=== PATIENT | male | born 1965 | race Caucasian/White ===

== ENCOUNTER 2020-12-04 19:03 | Emergency (ER) | payer MEDICARE, MEDICAID, SELFPAY ==
[2020-12-04 19:19] VITALS: BP 129/59; PULSE 73; RESP 16; TEMP 37.4; O2SAT 100; BMI 30.1
--- NOTE | 2020-12-04 19:38 | ED.PSYCH ---
HPI - Psych General Chief Complaint: Psychiatric Symptoms Stated Complaint: chest pain Source: patient Mode of arrival: ambulatory Limitations: no limitations History of Present Illness HPI Narrative: 55-year-old male presents via EMS for chest pain, suicidal ideation with plan to slit his throat with a razor. States that his fiancee dumped him, and is with another man. He did present to [facility] with similar circumstances approximately a week ago. MD complaint: suicidal ideation and feels depressed Onset (ago): week(s) Duration: constant History of same: Yes Relieving factors: none Context: significant life stressor Associated psychiatric symptoms: depression and suicidal ideation Associated symptoms: denies other symptoms Treatments prior to arrival: placed on mental health hold If self harm: admits thoughts of self harm Related Data Allergies Allergy/AdvReac Type Severity Reaction Status Date / Time bee pollen [bee stings] Allergy Intermediate Rash Verified 12/04/20 19:52 gluten AdvReac Intermediate Diarrhea Verified 12/04/20 19:51 Review of Systems Review of Systems: Constitutional: No Fever, No Chills ENT/Mouth: No Ear Pain, No Nasal Congestion, No sore throat Eyes: No Eye Pain, No Swelling, No Redness Cardiovascular: No Chest Pain, No SOB Respiratory: No Cough, No Sputum, No Dyspnea Gastrointestinal: No Nausea, No Vomiting, No Diarrhea, No Hematochezia, No Melena Genitourinary: No Dysuria, No Urinary Frequency, No Hematuria Musculoskeletal: No Myalgias Skin: No Skin Lesions, No rash Neuro: No Weakness, No Numbness, No Paresthesias, No Dizziness, No Headache Psych: positive Anxiety, positive Depression, positive SI Heme/Lymph: No Lymphadenopathy Endocrine: No Polyuria, No Polydipsia Yes all other systems are reviewed and are negative [facility] Past Medical History Attestation statement: The following information was validated with the patient. Source: old records reviewed Medical History Hypertension Social History Social History Advance Directives: No Physical Exam Vital Signs: Vital Signs: Last Vital Signs Temp 97.8 F 12/05/20 01:49 Pulse 67 12/05/20 01:49 Resp 17 12/05/20 01:49 BP 127/71 12/05/20 01:49 Pulse Ox 99 12/05/20 01:49 Body Mass Index 30.1 Appearance: Alert. Oriented X3. No acute distress. Eyes: Pupils equal, round and reactive to light. ENT: Pharynx normal. Neck: Normal inspection. Neck supple. CVS: Normal heart rate and rhythm. Pulses normal. Respiratory: No respiratory distress. Breath sounds normal. Abdomen: Soft and nontender. Skin: Skin warm and dry. Normal skin color. Normal skin turgor. Extremities: No lower extremity edema. Gait well balanced well coordinated. Neuro: No motor deficit. No sensory deficit. Cranial nerves 2-12 intact. Course Course Course Narrative: 55-year-old male presents with suicidal ideation with plan to slit his throat. Has significant life stressor, his fiancee left him and is now dating a man. Patient was seen at [facility] for similar circumstances. Will order EKG and labs. EKG normal sinus. Labs are unremarkable. Highly unlikely that this is ACS. screen is negative. Crisis consult pending. Section 12 signed. Physician observation at this time. [facility] records reviewed from 12/02/2020 H&H is 9.4/29.3 which is consistent with the values here today of 9.6/29.3. Does have a history of chronic alcoholism. EKG completed at [facility] at 7:28 p.m. with ventricular rate of 70 beats per minute, UT 158, QRS 134, QT 446, QTC 481, normal sinus rhythm with right bundle branch block. When compared to EKG completed on 12/01/2020 at [facility], no changes noted, and also reports no changes from prior EKGs on [facility] records. Crisis consult pending for the morning. MDM - Psych Differential Diagnosis Differential diagnosis: Likely suicidal ideation and depression Medical Records Attestation: I reviewed the patient's medical records. Lab Data Attestation: I reviewed the patient's lab results. Result diagrams: 12/04/20 20:05 12/04/20 20:05 Labs: Lab Results 12/04/20 12/04/20 12/04/20 Range/Units 20:00 20:05 20:05 WBC 4.4 L (4.8-10.8) X10*3/uL RBC 3.31 L (4.60-5.80) X10*6/uL Hgb 9.6 L (14.0-18.0) g/dl Hct 29.3 L (42-52) % MCV 88.5 (80-98) fL MCH 29.0 (27.0-33.0) pg MCHC 32.8 (31.0-36.0) g/dl RDW 15.3 (11.0-16.0) % Plt Count 183 (160-400) X10*3/uL MPV 9.3 L (9.4-12.4) fL Immature Gran % (Auto) 0.5 H (0.0-0.4) % Neut % (Auto) 56.3 (45-73) % Lymph % (Auto) 31.5 (20-40) % [place] % (Auto) 10.1 (2-11) % Eos % (Auto) 1.1 (0-4) % Baso % (Auto) 0.5 (0-2) % Lymph # (Auto) 1.4 (1.2-4.9) X10*3/uL [place] # (Auto) 0.4 (0.1-1.2) X10*3/uL Eos # (Auto) 0.1 (0.0-0.4) X10*3/uL Baso # (Auto) 0.0 (0.0-0.2) X10*3/uL Abs Immat Gran (auto) 0.02 (0.00-0.03) X10*3/uL Absolute Neuts (auto) 2.5 (2.0-8.3) X10*3/uL Absolute Nucleated RBC 0.000 (0.0-0.012) X10*3/uL Nucleated RBC % (auto) 0.0 (0.0-0.2) /100WBC Sodium 142 (135-145) mmol/L Potassium 4.0 (3.3-5.1) mmol/L Chloride 112 H (96-108) mmol/L Carbon Dioxide 25 (22-29) mmol/L Anion Gap 9 L (12-20) BUN 20 H (9-16) mg/dL Creatinine 0.79 (0.5-1.4) mg/dL Estim Creat Clear Calc 123.8 Estimated GFR > 60 Random Glucose 99 (60-115) mg/dL Calcium 8.4 (8.4-10.2) mg/dL Total Bilirubin 0.5 (0.0-1.0) mg/dL AST 31 (5-37) U/L ALT 30 (0-40) U/L Alkaline Phosphatase 74 (39-117) U/L Troponin I High Sens (<3.5-35.0) ng/L Total Protein 6.1 L (6.5-8.0) g/dL Albumin 3.5 (3.5-5.0) g/dL Urine Opiates Screen (Not Detect) Urine Fentanyl Screen (Not Detect) Ur Barbiturates Screen (Not Detect) Ur Phencyclidine Scrn (Not Detect) Ur Amphetamines Screen (Not Detect) U Benzodiazepines Scrn (Not Detect) Urine Cocaine Screen (Not Detect) U Marijuana (THC) Screen (Not Detect) Ethyl Alcohol mg/dL COVID-19 (EITAN) Negative (Negative) COVID-19 Clin Com See Note 12/04/20 12/04/20 12/05/20 Range/Units 20:05 20:05 01:58 WBC (4.8-10.8) X10*3/uL RBC (4.60-5.80) X10*6/uL Hgb (14.0-18.0) g/dl Hct (42-52) % MCV (80-98) fL MCH (27.0-33.0) pg MCHC (31.0-36.0) g/dl RDW (11.0-16.0) % Plt Count (160-400) X10*3/uL MPV (9.4-12.4) fL Immature Gran % (Auto) (0.0-0.4) % Neut % (Auto) (45-73) % Lymph % (Auto) (20-40) % [place] % (Auto) (2-11) % Eos % (Auto) (0-4) % Baso % (Auto) (0-2) % Lymph # (Auto) (1.2-4.9) X10*3/uL [place] # (Auto) (0.1-1.2) X10*3/uL Eos # (Auto) (0.0-0.4) X10*3/uL Baso # (Auto) (0.0-0.2) X10*3/uL Abs Immat Gran (auto) (0.00-0.03) X10*3/uL Absolute Neuts (auto) (2.0-8.3) X10*3/uL Absolute Nucleated RBC (0.0-0.012) X10*3/uL Nucleated RBC % (auto) (0.0-0.2) /100WBC Sodium (135-145) mmol/L Potassium (3.3-5.1) mmol/L Chloride (96-108) mmol/L Carbon Dioxide (22-29) mmol/L Anion Gap (12-20) BUN (9-16) mg/dL Creatinine (0.5-1.4) mg/dL Estim Creat Clear Calc Estimated GFR Random Glucose (60-115) mg/dL Calcium (8.4-10.2) mg/dL Total Bilirubin (0.0-1.0) mg/dL AST (5-37) U/L ALT (0-40) U/L Alkaline Phosphatase (39-117) U/L Troponin I High Sens 6.3 (<3.5-35.0) ng/L Total Protein (6.5-8.0) g/dL Albumin (3.5-5.0) g/dL Urine Opiates Screen Not Detected (Not Detect) Urine Fentanyl Screen Not Detected (Not Detect) Ur Barbiturates Screen Not Detected (Not Detect) Ur Phencyclidine Scrn Not Detected (Not Detect) Ur Amphetamines Screen Not Detected (Not Detect) U Benzodiazepines Scrn Not Detected (Not Detect) Urine Cocaine Screen Not Detected (Not Detect) U Marijuana (THC) Screen Not Detected (Not Detect) Ethyl Alcohol < 10 mg/dL COVID-19 (EITAN) (Negative) COVID-19 Clin Com ECG Data Attestation: I personally reviewed and interpreted this ECG as follows: ECG interpretation date: 12/04/20 Discharge Plan Discharge Clinical Impression: Depression, Suicidal ideation
--- NOTE | 2020-12-04 19:39 | ECG_ITS ---
Test Reason : CHEST PAIN Blood Pressure : / mmHG Vent. Rate : 070 BPM Atrial Rate : 070 BPM P-R Int : 158 ms QRS Dur : 134 ms QT Int : 446 ms P-R-T Axes : 006 089 055 degrees QTc Int : 481 ms Normal sinus rhythm Right bundle branch block Abnormal ECG No previous ECGs available Referred By: Allie Brink Electronically Signed By:ELIA ACUÑA
[2020-12-04 20:16] LABS: MANUAL DIFF FLAG NO
[2020-12-04 20:22] LABS: Basophils Percent Auto 0.5 % (0-2); Eosinophils Absolute Auto 0.1 X10*3/uL (0.0-0.4); Eosinophils Percent Auto 1.1 % (0-4); Hematocrit 29.3 % (42-52); Hemoglobin 9.6 g/dl (14.0-18.0); Imm Gran Abs Auto 0.02 X10*3/uL (0.00-0.03); Imm Gran Pct Auto 0.5 % (0.0-0.4); Lymphocytes Absolute Auto 1.4 X10*3/uL (1.2-4.9); Lymphocytes Percent Auto 31.5 % (20-40); Mean Corpuscular HGB Conc 32.8 g/dl (31.0-36.0); Mean Corpuscular Volume 88.5 fL (80-98); Mean Platelet Volume 9.3 fL (9.4-12.4); Monocytes Absolute Auto 0.4 X10*3/uL (0.1-1.2); Monocytes Percent Auto 10.1 % (2-11); Neutrophils Absolute Auto 2.5 X10*3/uL (2.0-8.3); Neutrophils Percent Auto 56.3 % (45-73); Platelet Count 183 X10*3/uL (160-400); Red Blood Count 3.31 X10*6/uL (4.60-5.80); Red Cell Distribution Width 15.3 % (11.0-16.0); White Blood Count 4.4 X10*3/uL (4.8-10.8)
[2020-12-04 20:22] LABS: COVID-19 Test Negative (Negative); IDNOW Serial# 9DD0AD1C
[2020-12-04 20:29] LABS: Ethanol < 10 mg/dL
[2020-12-04 20:33] LABS: Alanine Aminotransferase 30 U/L (0-40); Albumin Level 3.5 g/dL (3.5-5.0); Alkaline Phosphatase 74 U/L (39-117); Anion Gap 9 (12-20); Aspartate Amino Transferase 31 U/L (5-37); Bilirubin Total 0.5 mg/dL (0.0-1.0); Blood Urea Nitrogen 20 mg/dL (9-16); Calcium 8.4 mg/dL (8.4-10.2); Carbon Dioxide 25 mmol/L (22-29); Chloride 112 mmol/L (96-108); Creatinine Clr Calc Pharmacy 123.8; Estimated Glomerular Filt Rate > 60; Glucose Random 99 mg/dL (60-115); Sodium 142 mmol/L (135-145); Total Protein 6.1 g/dL (6.5-8.0)
[2020-12-04 20:36] LABS: Troponin-I High Sensitivity 6.3 ng/L (<3.5-35.0)
--- NOTE | 2020-12-05 00:29 | PC.NURSE ---
Patient in his bed appears sleeping, no distress observed/reported, N referral completed/confirmed by Doug, no clinician available, patient will be seen in the morning, will continue to monitor.
[2020-12-05 01:49] VITALS: BP 127/71; PULSE 67; RESP 17; TEMP 36.6; O2SAT 99
[2020-12-05 02:22] LABS: Amphetamine Screen Urine Not Detected (Not Detect); Barbiturates, Urine Not Detected (Not Detect); Benzodiazepines Screen Urine Not Detected (Not Detect); Cannabinoid Screen Urine Not Detected (Not Detect); Cocaine Screen Urine Not Detected (Not Detect); Fentanyl, urine Not Detected (Not Detect); Opiate Screen Urine Not Detected (Not Detect); Phencyclidine Screen Urine Not Detected (Not Detect)
--- NOTE | 2020-12-05 07:41 | PC.NURSE ---
patient remained asleep at beginning of shift now is awake calm and cooperastive appears in no distress
[2020-12-05 09:23] VITALS: BP 122/65; PULSE 64; RESP 16; TEMP 36.4; O2SAT 99
== END 2020-12-05 12:14 | disposition home or self-care (01) ==
PROVIDERS: Nurse Practitioner Family; Emergency Provider Student in an Organized Health Care Education/Training Program
DX: F33.1 Major depressive disorder, recurrent, moderate (principal); R45.851 Suicidal ideations; R07.9 Chest pain, unspecified; F43.9 Reaction to severe stress, unspecified; Z20.822 Contact with and (suspected) exposure to COVID-19; Z79.899 Other long term (current) drug therapy
CPT/HCPCS: 36415; 80053; 80307; 82077; 84484; 85025; 87635; 93005; 99284

== ENCOUNTER 2021-01-01 21:03 | Inpatient (IN) | payer MEDICARE, MEDICAID, SELFPAY ==
--- NOTE | ~2021-01-01 | XR_ITS ---
EXAMINATION: XR TOES, LEFT CLINICAL INFORMATION: Fall. 3rd toe bruising. Pain. Difficulty with ambulation. COMPARISON: None TECHNIQUE: 3 views of the left toes were obtained. FINDINGS: Minimally displaced, oblique fracture at the dorsal base of the 3rd distal phalanx. This contacts the distal interphalangeal articular surface. Mild soft tissue swelling. No joint space narrowing or marginal osteophytes. No osseous erosion. XR/XR toe LT min 2V IMPRESSION: Minimally displaced fracture along the dorsal base of the 3rd distal phalanx.
--- NOTE | ~2021-01-01 | XR_ITS ---
EXAMINATION: XR CHEST CLINICAL INFORMATION: Chest pain. COMPARISON: None TECHNIQUE: Frontal portable view of the chest was obtained. 2200 hours FINDINGS: Status post median sternotomy. Heart size is normal. The left pulmonary artery is markedly enlarged. Moderate enlargement right pulmonary artery. Findings suggest pulmonary arterial hypertension. Normal aeration of lungs. No pleural effusion or pneumothorax. Orthopedic left humeral head replacement. XR/XR chest 1V IMPRESSION: 1. No acute abnormality. 2.Status post median sternotomy. 3. Enlargement of pulmonary arteries suggestive of pulmonary arterial hypertension.
--- NOTE | 2021-01-01 21:13 | ECG_ITS ---
Test Reason : CHEST PAIN Blood Pressure : / mmHG Vent. Rate : 078 BPM Atrial Rate : 078 BPM P-R Int : 152 ms QRS Dur : 132 ms QT Int : 426 ms P-R-T Axes : 007 107 056 degrees QTc Int : 485 ms Normal sinus rhythm Right bundle branch block Abnormal ECG When compared with ECG of 04-DEC-2020 19:28, No significant change was found Referred By: Marcela Godoy Electronically Signed By:YANNI ESTRELLA MD
--- NOTE | 2021-01-01 21:14 | ED_ITS ---
HPI - Psych General Chief Complaint: Psychiatric Symptoms Stated Complaint: SI/Chest pain Time Seen by Provider: 01/01/21 21:09 Source: patient, EMS and old records reviewed Mode of arrival: EMS Limitations: no limitations History of Present Illness MD complaint: suicidal ideation, feels depressed and anxiety Onset (ago): day(s) (2) Duration: constant History of same: Yes Relieving factors: none Exacerbating factors: other (homelessness and his fiancee left him) Context: significant life stressor Associated psychiatric symptoms: depression and suicidal ideation Associated symptoms: other (reports chest pain no associated symptoms for 45 minutes) If self harm: admits thoughts of self harm Related Data Home Medications Medication Instructions Recorded Confirmed acetaminophen 325 mg tablet 2 mg PO TID PRN 01/01/21 01/01/21 citalopram 10 mg tablet 1 tab PO DAILY 01/01/21 01/01/21 hydroxyzine pamoate 50 mg capsule 1 cap PO TID PRN 01/01/21 01/01/21 prazosin 2 mg capsule 1 cap PO BEDTIME 01/01/21 01/01/21 sertraline 100 mg tablet 1 tab PO DAILY 01/01/21 01/01/21 Allergies Allergy/AdvReac Type Severity Reaction Status Date / Time bee pollen [bee stings] Allergy Intermediate Rash Verified 12/04/20 19:52 gluten AdvReac Intermediate Diarrhea Verified 12/04/20 19:51 Review of Systems Review of Systems: Constitutional : No Weight loss, No Fever, No Chills ENT/Mouth : No sore throat, No Rhinorrhea Eyes: No Eye Pain, No Swelling Cardiovascular : pos Chest Pain, no SOB, no Dyspnea on Exertion, No Orthopnea, No Edema, No Palpitations Respiratory : No Cough, No Sputum Gastrointestinal : no Nausea, No Vomiting, No Diarrhea, No abdominal Pain, No Hematochezia, No Melena Genitourinary : No Dysuria, No Urinary Frequency Musculoskeletal : No joint pain, No Myalgias, No Joint Swelling Skin : No Skin Lesions, No rash Neuro : No Weakness, No Numbness, No Dizziness, No Headache Psych : No Anxiety/Panic, pos Depression, pos SI Heme/Lymph: No Bruising, No Lymphadenopathy Endocrine : No Polyuria, No Polydipsia All other systems reviewed and are negative PMFSH Past Medical History Attestation statement: The following information was validated with the patient. Medical History Hypertension Social History Social History (Updated 01/01/21 @ 21:24 by Marcela Godoy DO) Patient Tobacco Use Status: Never used Tobacco Use of substances other than those prescribed or required for medical reasons: No Advance Directives: No Advance Directives Information Provided: No Physical Exam Vital Signs: Vital Signs: Last Vital Signs Temp 98.6 F 01/01/21 21:31 Pulse 82 01/01/21 21:31 Resp 14 01/01/21 21:31 BP 124/82 01/01/21 21:31 Pulse Ox 98 01/01/21 21:31 Body Mass Index 29.8 Appearance: Alert. Oriented X3. No acute distress. Eyes: Pupils equal, round and reactive to light. ENT: Pharynx normal. Neck: Normal inspection. Neck supple. CVS: Normal heart rate and rhythm. Pulses normal. Respiratory: No respiratory distress. Breath sounds normal. Abdomen: Soft and non-tender. Skin: Skin warm and dry. Normal skin color. Normal skin turgor. Extremities: No lower extremity edema. No calf ttp Neuro: Oriented X 3. No motor deficit. No sensory deficit. CN2-12 intact Psych: calm and cooperative, reports SI Course Course Course Narrative: delta trop is flat - will medically clear for BHN Physician observation started at 1238am. Patient placed in physician observation because the patient needed more time for BHN to evaluate the need for inpatient psychiatric care. At the time observation was started the patient's vitals were stable, patient is alert and oriented / calm, Neuro: nonfocal, CV RRR, Lungs clear MDM - Psych MDM Narrative Medical decision making narrative: 55 yo male with HTN, DM homeless here with SI due to losing his girlfriend but also then states chest tightness for 45 minutes - he presented almost the exact same way in November will obtain labs, EKG, troponin x 2, BHN consult once medically cleared. It seems his issues stem from lack of housing Lab Data Result diagrams: 01/01/21 21:53 01/01/21 21:53 Labs: Lab Results 01/01/21 01/01/21 01/01/21 Range/Units 21:53 21:53 21:53 WBC 4.5 L (4.8-10.8) X10*3/uL RBC 3.57 L (4.60-5.80) X10*6/uL Hgb 10.1 L (14.0-18.0) g/dl Hct 30.9 L (42-52) % MCV 86.6 (80-98) fL MCH 28.3 (27.0-33.0) pg MCHC 32.7 (31.0-36.0) g/dl RDW 14.1 (11.0-16.0) % Plt Count 189 (160-400) X10*3/uL MPV 9.1 L (9.4-12.4) fL Immature Gran % (Auto) 0.4 (0.0-0.4) % Neut % (Auto) 55.9 (45-73) % Lymph % (Auto) 30.4 (20-40) % [place] % (Auto) 11.5 H (2-11) % Eos % (Auto) 1.1 (0-4) % Baso % (Auto) 0.7 (0-2) % Lymph # (Auto) 1.4 (1.2-4.9) X10*3/uL [place] # (Auto) 0.5 (0.1-1.2) X10*3/uL Eos # (Auto) 0.1 (0.0-0.4) X10*3/uL Baso # (Auto) 0.0 (0.0-0.2) X10*3/uL Abs Immat Gran (auto) 0.02 (0.00-0.03) X10*3/uL Absolute Neuts (auto) 2.5 (2.0-8.3) X10*3/uL Absolute Nucleated RBC 0.000 (0.0-0.012) X10*3/uL Nucleated RBC % (auto) 0.0 (0.0-0.2) /100WBC Sodium 140 (135-145) mmol/L Potassium 3.8 (3.3-5.1) mmol/L Chloride 109 H (96-108) mmol/L Carbon Dioxide 22 (22-29) mmol/L Anion Gap 13 (12-20) BUN 21 H (9-16) mg/dL Creatinine 0.88 (0.5-1.4) mg/dL Estim Creat Clear Calc 110.6 Estimated GFR > 60 Random Glucose 104 (60-115) mg/dL Calcium 8.3 L (8.4-10.2) mg/dL Magnesium 2.0 (1.6-2.6) mg/dL Troponin I High Sens 7.2 (<3.5-35.0) ng/L COVID-19 (EITAN) (Negative) COVID-19 Clin Com 01/01/21 01/02/21 Range/Units 21:53 00:08 WBC (4.8-10.8) X10*3/uL RBC (4.60-5.80) X10*6/uL Hgb (14.0-18.0) g/dl Hct (42-52) % MCV (80-98) fL MCH (27.0-33.0) pg MCHC (31.0-36.0) g/dl RDW (11.0-16.0) % Plt Count (160-400) X10*3/uL MPV (9.4-12.4) fL Immature Gran % (Auto) (0.0-0.4) % Neut % (Auto) (45-73) % Lymph % (Auto) (20-40) % [place] % (Auto) (2-11) % Eos % (Auto) (0-4) % Baso % (Auto) (0-2) % Lymph # (Auto) (1.2-4.9) X10*3/uL [place] # (Auto) (0.1-1.2) X10*3/uL Eos # (Auto) (0.0-0.4) X10*3/uL Baso # (Auto) (0.0-0.2) X10*3/uL Abs Immat Gran (auto) (0.00-0.03) X10*3/uL Absolute Neuts (auto) (2.0-8.3) X10*3/uL Absolute Nucleated RBC (0.0-0.012) X10*3/uL Nucleated RBC % (auto) (0.0-0.2) /100WBC Sodium (135-145) mmol/L Potassium (3.3-5.1) mmol/L Chloride (96-108) mmol/L Carbon Dioxide (22-29) mmol/L Anion Gap (12-20) BUN (9-16) mg/dL Creatinine (0.5-1.4) mg/dL Estim Creat Clear Calc Estimated GFR Random Glucose (60-115) mg/dL Calcium (8.4-10.2) mg/dL Magnesium (1.6-2.6) mg/dL Troponin I High Sens 9.5 (<3.5-35.0) ng/L COVID-19 (EITAN) Negative (Negative) COVID-19 Clin Com See Note ECG Data Attestation: I personally reviewed and interpreted this ECG as follows: ECG interpretation date: 01/01/21 ECG interpretation time: 21:37 Interpretation: Rate: 78 Rhythm: [place]: left Normal P waves. Normal GENE. RBBB ST T wave : no ABIGAIL, inverted in V1-V2 qTC: normal prior studies: unchanged from prior The study has been interpreted contemporaneously by me. . Discharge Plan Discharge Clinical Impression: Suicidal ideation Chest pain Qualifiers: Chest pain type: unspecified Qualified Code(s): R07.9 - Chest pain, unspecified Prescriptions: No Action acetaminophen 325 mg tablet 2 mg PO TID PRN (Reason: Pain) RF: 0 citalopram 10 mg tablet 1 tab PO DAILY RF: 0 sertraline 100 mg tablet 1 tab PO DAILY RF: 0 hydroxyzine pamoate 50 mg capsule 1 cap PO TID PRN (Reason: Anxiety) RF: 0 prazosin 2 mg capsule 1 cap PO BEDTIME RF: 0
[2021-01-01 21:22] VITALS: BP 122/65; PULSE 82; RESP 14; TEMP 36.5; O2SAT 97
[2021-01-01 21:31] VITALS: BP 124/82; PULSE 82; PULSE 87; RESP 14; TEMP 37; O2SAT 98; BMI 29.8
--- NOTE | 2021-01-01 21:56 | PC.NURSE ---
visitor services technician at bedside for labs/EKG.
[2021-01-01 21:57] LABS: MANUAL DIFF FLAG NO
[2021-01-01 21:59] LABS: Basophils Percent Auto 0.7 % (0-2); Eosinophils Absolute Auto 0.1 X10*3/uL (0.0-0.4); Eosinophils Percent Auto 1.1 % (0-4); Hematocrit 30.9 % (42-52); Hemoglobin 10.1 g/dl (14.0-18.0); Imm Gran Abs Auto 0.02 X10*3/uL (0.00-0.03); Imm Gran Pct Auto 0.4 % (0.0-0.4); Lymphocytes Absolute Auto 1.4 X10*3/uL (1.2-4.9); Lymphocytes Percent Auto 30.4 % (20-40); Mean Corpuscular HGB Conc 32.7 g/dl (31.0-36.0); Mean Corpuscular Hemoglobin 28.3 pg (27.0-33.0); Mean Corpuscular Volume 86.6 fL (80-98); Mean Platelet Volume 9.1 fL (9.4-12.4); Monocytes Absolute Auto 0.5 X10*3/uL (0.1-1.2); Monocytes Percent Auto 11.5 % (2-11); Neutrophils Absolute Auto 2.5 X10*3/uL (2.0-8.3); Neutrophils Percent Auto 55.9 % (45-73); Platelet Count 189 X10*3/uL (160-400); Red Blood Count 3.57 X10*6/uL (4.60-5.80); Red Cell Distribution Width 14.1 % (11.0-16.0); White Blood Count 4.5 X10*3/uL (4.8-10.8)
[2021-01-01 22:17] LABS: Anion Gap 13 (12-20); Blood Urea Nitrogen 21 mg/dL (9-16); Calcium 8.3 mg/dL (8.4-10.2); Carbon Dioxide 22 mmol/L (22-29); Chloride 109 mmol/L (96-108); Creatinine Clr Calc Pharmacy 110.6; Estimated Glomerular Filt Rate > 60; Glucose Random 104 mg/dL (60-115); Potassium 3.8 mmol/L (3.3-5.1); Sodium 140 mmol/L (135-145)
[2021-01-01 22:20] LABS: COVID-19 Test Negative (Negative); IDNOW Serial# 9DD0AD1C
[2021-01-01 22:22] LABS: Troponin-I High Sensitivity 7.2 ng/L (<3.5-35.0)
[2021-01-02 00:33] LABS: Troponin-I High Sensitivity 9.5 ng/L (<3.5-35.0)
[2021-01-02 01:17] VITALS: BP 122/59; PULSE 59; RESP 17; TEMP 36.8; O2SAT 100
[2021-01-02 01:45] LABS: Appearance Urine CLEAR; Color Urine YELLOW; Glucose Urine UA NEG (NEG); Leukocyte Esterase Urine NEG (NEG); Nitrite Urine NEG (NEG); Urine Blood NEG (NEG); Urine Ketones NEG (NEG); Urine Protein NEG (NEG-TRACE)
[2021-01-02 01:57] LABS: Amphetamine Screen Urine Not Detected (Not Detect); Barbiturates, Urine Not Detected (Not Detect); Benzodiazepines Screen Urine Not Detected (Not Detect); Cannabinoid Screen Urine Not Detected (Not Detect); Cocaine Screen Urine Not Detected (Not Detect); Fentanyl, urine Not Detected (Not Detect); Opiate Screen Urine Not Detected (Not Detect); Phencyclidine Screen Urine Not Detected (Not Detect); RBC Urine 0-2 /HPF (0); Squamous Epithelial Cell Urine 1+ /LPF; WBC Urine 0-2 /HPF (0-4)
--- NOTE | 2021-01-02 05:47 | PC.NURSE ---
Patient slept through the night, no distress observed/reported, behavior pleasant and appropriate, med rec completed/approved, N referral completed/confirmed by [facility], patient will be seen in the morning, appetite good, elimination intact, VSS, will continue to monitor.
--- NOTE | 2021-01-02 07:07 | PC.NURSE ---
patient appears to remain at rest at present, patient appears in no distress
[2021-01-02] MEDS: Escitalopram Oxalate 5 MG TABLET PO (10:32)
[2021-01-02] MEDS: Sertraline HCL 100 MG TABLET PO (10:32)
[2021-01-02 11:00] VITALS: BP 108/55; PULSE 63; RESP 14; TEMP 37.1; O2SAT 96
[2021-01-02 18:00] VITALS: BP 102/54; PULSE 70; RESP 16; TEMP 36.8; O2SAT 98
[2021-01-02] MEDS: Acetaminophen 325 MG TABLET 650 MG PO (18:41)
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
[2021-01-02 22:14] VITALS: BP 124/59; PULSE 62
[2021-01-02] MEDS: Prazosin HCL 1 MG CAPSULE 2 MG PO (22:14)
[2021-01-03 06:00] VITALS: BP 104/56; PULSE 54; RESP 16; TEMP 36.8; O2SAT 98
[2021-01-03 08:37] LABS: Estimated Average Glucose 114 mg/dL; Hemoglobin A1c % 5.6 %
[2021-01-03 08:43] LABS: Cholesterol 113 mg/dL; HDL Cholesterol 27 mg/dL; Iron 29 mcg/dL (45-160); LDL Cholesterol Calculated 74 mg/dl; Percent Iron Saturation 7 % (15-50); Total Iron Binding Capacity 402 mcg/dL (228-428); Triglycerides 60 mg/dL; Unsaturated Iron Binding 373 ug/dL
[2021-01-03] MEDS: Escitalopram Oxalate 5 MG TABLET PO (08:57)
[2021-01-03] MEDS: Sertraline HCL 100 MG TABLET PO (08:57)
[2021-01-03 09:04] LABS: Free T4 (Free Thyroxine) 0.68 ng/dL (0.71-1.85); Thyroid Stimulating Hormone 1.87 uIU/mL (0.32-4.0)
[2021-01-03] MEDS: Acetaminophen 325 MG TABLET 650 MG PO ×2 (12:26→18:43)
[2021-01-03] MEDS: Nicotine 21 MG PATCH.TD24 TRANSDERMA (13:42)
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
[2021-01-03 18:00] VITALS: BP 115/80; PULSE 78
[2021-01-03] MEDS: hydrOXYzine HCL 50 MG TABLET PO (18:44)
[2021-01-03] MEDS: OLANZapine 10 MG TABLET PO (21:08)
[2021-01-03 21:10] VITALS: BP 118/71; PULSE 78
[2021-01-03] MEDS: Prazosin HCL 1 MG CAPSULE 2 MG PO (21:10)
[2021-01-04] MEDS: Nicotine 21 MG PATCH.TD24 TRANSDERMA (08:25)
[2021-01-04] MEDS: Sertraline HCL 100 MG TABLET PO (08:25)
[2021-01-04] MEDS: Escitalopram Oxalate 5 MG TABLET PO (08:25)
[2021-01-04 09:19] LABS: Folate 4.5 ng/mL (> or = 4.0); Vitamin B12 172 pg/mL (200-900)
[2021-01-04] MEDS: Meclizine HCl 25 MG TABLET PO ×2 (13:37→23:40)
[2021-01-04 17:00] VITALS: BP 120/58; PULSE 69; TEMP 36.6; O2SAT 99
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
[2021-01-04] MEDS: OLANZapine 5 MG TABLET PO (20:12)
[2021-01-04 20:13] VITALS: BP 108/59; PULSE 77
[2021-01-04] MEDS: Prazosin HCL 1 MG CAPSULE 2 MG PO (20:13)
--- NOTE | 2021-01-05 | ECG_ITS ---
Test Reason : chest pain Blood Pressure : / mmHG Vent. Rate : 070 BPM Atrial Rate : 070 BPM P-R Int : 162 ms QRS Dur : 132 ms QT Int : 448 ms P-R-T Axes : 021 091 061 degrees QTc Int : 483 ms Normal sinus rhythm Right bundle branch block Abnormal ECG No previous ECGs available Referred By: Lina Moise Electronically Signed By:YANNI ESTRELLA MD
[2021-01-05 06:00] VITALS: BP 116/55; PULSE 69; RESP 16; TEMP 36.1; O2SAT 96
[2021-01-05] MEDS: Omeprazole 20 MG CAPSULE.DR PO (06:42)
[2021-01-05] MEDS: Levothyroxine Sodium 75 MCG TABLET PO (06:42)
[2021-01-05 08:25] LABS: Estimated Average Glucose 117 mg/dL; Hemoglobin A1c % 5.7 %
[2021-01-05 08:41] LABS: Cholesterol 128 mg/dL; HDL Cholesterol 29 mg/dL; Iron 25 mcg/dL (45-160); LDL Cholesterol Calculated 87 mg/dl; Percent Iron Saturation 7 % (15-50); Total Iron Binding Capacity 383 mcg/dL (228-428); Triglycerides 64 mg/dL; Unsaturated Iron Binding 358 ug/dL
[2021-01-05] MEDS: Nicotine 21 MG PATCH.TD24 TRANSDERMA (08:42)
[2021-01-05 08:43] VITALS: BP 116/55; PULSE 69
[2021-01-05] MEDS: Ferrous Sulfate 324 MG TABLET.DR PO (08:43)
[2021-01-05] MEDS: Sertraline HCL 100 MG TABLET PO (08:43)
[2021-01-05] MEDS: Escitalopram Oxalate 5 MG TABLET PO (08:43)
[2021-01-05] MEDS: lisinopriL 5 MG TABLET PO (08:43)
[2021-01-05 09:01] LABS: TSH reflex Free T4 2.21 uIU/mL (0.32-4.0)
[2021-01-05 09:25] LABS: Vitamin B12 162 pg/mL (200-900)
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
[2021-01-05] MEDS: Aspirin Enteric Coated 81 MG TABLET.DR PO (13:22)
[2021-01-05] MEDS: Cyanocobalamin (Vitamin B-12) 1,000 MCG/ML VIAL 1000 MCG IM (13:22)
[2021-01-05 19:45] VITALS: BP 100/54; PULSE 85; TEMP 36.8
[2021-01-05] MEDS: LORazepam 1 MG TABLET PO (20:24)
[2021-01-05] MEDS: Acetaminophen 325 MG TABLET 650 MG PO (20:24)
[2021-01-05 21:27] VITALS: BP 106/55; PULSE 75
[2021-01-05] MEDS: OLANZapine 5 MG TABLET PO (21:27)
[2021-01-05] MEDS: Prazosin HCL 1 MG CAPSULE 2 MG PO (21:27)
--- NOTE | 2021-01-06 | ECG_ITS ---
Test Reason : cp Blood Pressure : / mmHG Vent. Rate : 061 BPM Atrial Rate : 061 BPM P-R Int : 166 ms QRS Dur : 144 ms QT Int : 470 ms P-R-T Axes : 022 096 062 degrees QTc Int : 473 ms Normal sinus rhythm Right bundle branch block Abnormal ECG When compared with ECG of 05-JAN-2021 21:56, No significant change was found Referred By: Radha Osborne Electronically Signed By:YANNI ESTRELLA MD
[2021-01-06 06:00] VITALS: BP 130/60; PULSE 58; TEMP 37.1; O2SAT 98
[2021-01-06] MEDS: Omeprazole 20 MG CAPSULE.DR PO (06:35)
[2021-01-06] MEDS: Levothyroxine Sodium 75 MCG TABLET PO (06:35)
[2021-01-06 09:18] VITALS: BP 130/60; PULSE 58
[2021-01-06] MEDS: Nicotine 21 MG PATCH.TD24 TRANSDERMA (09:18)
[2021-01-06] MEDS: LORazepam 1 MG TABLET PO (09:18)
[2021-01-06] MEDS: Aspirin Enteric Coated 81 MG TABLET.DR PO (09:18)
[2021-01-06] MEDS: Ferrous Sulfate 324 MG TABLET.DR PO (09:18)
[2021-01-06] MEDS: lisinopriL 5 MG TABLET PO (09:18)
[2021-01-06] MEDS: Escitalopram Oxalate 5 MG TABLET PO (09:18)
[2021-01-06] MEDS: Sertraline HCL 100 MG TABLET PO (09:19)
[2021-01-06 11:02] LABS: Troponin-I High Sensitivity < 3.5 ng/L (<3.5-35.0)
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
--- NOTE | 2021-01-06 12:46 | HO.PSYCHPN ---
Subjective Subjective Date of Service: 01/06/21 Reason For Visit: SI/Chest pain Subjective Notes: Conditional Voluntary Interim History: Pt experienced an episode of chest pain this a.m. Dr. Cage was consulted. EKG is unchanged, Troponin levels are wnl and he believes for pt this is a typical sx. Pt to begin a statin. After this pt spent most of the day in bed. He continues to report intermittent voices and SI, states he does believe he can approach team if he feels that he may act upon these feelings and reports feeling safety on the unit. Medication Compliance: Yes Side effects from medications: No Attending Groups: No Review of Systems Acute medical concerns: Yes As noted above Medical Review of Systems: unchanged Review of Systems Cardiovascular: Reports chest pain at rest (evaluation by hospitalist team is negative) Psychiatric: Reports depression, Reports auditory hallucinations and Reports suicidal ideation Mental Status Exam Mental Status Exam Patient Appearance: Fatigued and Disheveled Patient Orientation: Person, Place, Time and Situation Level of Consciousness: Awake and Alert Patient Behavior: Talkative and Good Eye Contact Mood Description: Depressed Affect Description: Flat Patient Cognition Impaired: No Ability to Follow Directions: Good Speech Pattern: Spontaneous Speech Memory Description: Intact Hallucinations: Auditory Thought Process: Distracted and Rumination Thought Content: positive for Suicidal Ideation Depressive Symptoms: Thoughts of /Suicide Judgement: Fair Diagnostics Vital Signs (24Hr): Vital Signs - 24 hr 01/05/21 19:45 01/05/21 21:27 01/06/21 06:00 Temperature 98.2 F 98.7 F Pulse Rate 85 75 58 Blood Pressure 100/54 L 106/55 L 130/60 Pulse Oximetry 98 01/06/21 09:18 Temperature Pulse Rate 58 Blood Pressure 130/60 Pulse Oximetry Body Mass Index 29.8 Labs Results: 01/01/21 21:53 01/01/21 21:53 Labs: Laboratory Results - last 48 hr 01/05/21 01/05/21 01/05/21 08:02 08:02 08:02 Estimat Average Glucose 117 Hemoglobin A1c % 5.7 Iron 25 L TIBC 383 % Saturation 7 L Unsat Iron Binding 358 Troponin I High Sens Triglycerides 64 Cholesterol 128 LDL Cholesterol, Calc 87 HDL Cholesterol 29 Vitamin B12 162 L Folate 3.0 L TSH 2.21 01/06/21 10:14 Estimat Average Glucose Hemoglobin A1c % Iron TIBC % Saturation Unsat Iron Binding Troponin I High Sens < 3.5 D Triglycerides Cholesterol LDL Cholesterol, Calc HDL Cholesterol Vitamin B12 Folate TSH Imaging Radiology Impressions: ITS Impressions Chest X-Ray 01/01/21 21:13 IMPRESSION: 1. No acute abnormality. 2.Status post median sternotomy. 3. Enlargement of pulmonary arteries suggestive of pulmonary arterial hypertension. Medications Medications Current Medications Acetaminophen (Acetaminophen 325 Mg Tablet) 650 mg PO Q6H PRN PRN Reason: Headache/Pain Mild Scale (1-3) Last Admin: 01/05/21 20:24 Dose: 650 mg Documented by: Al Hydroxide/Mg Hydroxide (Magnesium Hydrox/Alum Hydrox 30 Ml Oral.Susp) 30 ml PO Q6H PRN PRN Reason: Heartburn/Nausea Aspirin (Aspirin Enteric Coated 81 Mg Tablet.) 81 mg PO DAILY [facility] Last Admin: 01/06/21 09:18 Dose: 81 mg Documented by: Atorvastatin Calcium (Atorvastatin Calcium 40 Mg Tablet) 40 mg PO BEDTIME [facility] Cyanocobalamin (Cyanocobalamin (Vitamin B-12) 1,000 Mcg/Ml Vial) 1,000 mcg IM Q30D [facility] Last Admin: 01/05/21 13:22 Dose: 1,000 mcg Documented by: Escitalopram Oxalate (Escitalopram Oxalate 5 Mg Tablet) 5 mg PO DAILY [facility] Last Admin: 01/06/21 09:18 Dose: 5 mg Documented by: Ferrous Sulfate (Ferrous Sulfate 324 Mg Tablet.) 324 mg PO DAILY [facility] Last Admin: 01/06/21 09:18 Dose: 324 mg Documented by: Folic Acid (Folic Acid 1 Mg Tablet) 1 mg PO DAILY [facility] Levothyroxine Sodium (Levothyroxine Sodium 75 Mcg Tablet) 75 mcg PO DAILY@0600 [facility] Last Admin: 01/06/21 06:35 Dose: 75 mcg Documented by: Lisinopril (Lisinopril 5 Mg Tablet) 5 mg PO DAILY [facility]; Protocol Last Admin: 01/06/21 09:18 Dose: 5 mg Documented by: Lorazepam (Lorazepam 1 Mg Tablet) 1 mg PO Q4H PRN PRN Reason: anxiety Last Admin: 01/06/21 09:18 Dose: 1 mg Documented by: Magnesium Hydroxide (Milk Of Magnesia 30 Ml Oral.Susp) 30 ml PO DAILY PRN PRN Reason: Constipation Meclizine HCl (Meclizine Hcl 25 Mg Tablet) 25 mg PO Q8H PRN PRN Reason: Vertigo Last Admin: 01/04/21 23:40 Dose: 25 mg Documented by: Nicotine (Nicotine 21 Mg Patch.Td24) 21 mg TRANSDERMA DAILY [facility] Last Admin: 01/06/21 09:18 Dose: 21 mg Documented by: Olanzapine (Olanzapine 5 Mg Tablet) 5 mg PO BID PRN PRN Reason: auditory perceptual alterations Olanzapine (Olanzapine 5 Mg Tablet) 5 mg PO BEDTIME [facility] Last Admin: 01/05/21 21:27 Dose: 5 mg Documented by: Omeprazole (Omeprazole 20 Mg Capsule.Dr) 20 mg PO DAILY@0630 [facility] Last Admin: 01/06/21 06:35 Dose: 20 mg Documented by: Prazosin HCl (Prazosin Hcl 1 Mg Capsule) 2 mg PO BEDTIME [facility]; Protocol Last Admin: 01/05/21 21:27 Dose: 2 mg Documented by: Sertraline HCl (Sertraline Hcl 100 Mg Tablet) 100 mg PO DAILY [facility] Last Admin: 01/06/21 09:19 Dose: 100 mg Documented by: Trazodone HCl (Trazodone Hcl 50 Mg Tablet) 50 mg PO BEDTIME PRN PRN Reason: Insomnia Allergies Allergies Allergy/AdvReac Type Severity Reaction Status Date / Time bee pollen [bee stings] Allergy Intermediate Rash Verified 12/04/20 19:52 gluten AdvReac Intermediate Diarrhea Verified 12/04/20 19:51 Assessment & Plan Assessment & Plan (1) Chest pain: Qualifiers: Chest pain type: unspecified Qualified Code(s): R07.9 - Chest pain, unspecified Status: Acute Code(s): R07.9 - Chest pain, unspecified Assessment and Plan: Continue to monitor and current medication regime. Greater than 50% of the session was spent on counseling and/or coordination of care Patient educated on: medication risk/benefits and therapeutic strategies Informed Consent: understands and further education needed Reason for contiued inpatient stay Substantial Risk for: harm to self, inability to function and rapid decompensation
[2021-01-06 14:04] LABS: Troponin-I High Sensitivity < 3.5 ng/L (<3.5-35.0)
[2021-01-06] MEDS: Meclizine HCl 25 MG TABLET PO (16:09)
[2021-01-06 18:00] VITALS: BP 116/78; PULSE 76
[2021-01-06 22:00] VITALS: BP 116/78; PULSE 76
[2021-01-06] MEDS: OLANZapine 5 MG TABLET PO (22:00)
[2021-01-06] MEDS: Atorvastatin Calcium 40 MG TABLET PO (22:00)
[2021-01-06] MEDS: Prazosin HCL 1 MG CAPSULE 2 MG PO (22:00)
[2021-01-06] MEDS: traZODone HCL 50 MG TABLET PO (22:04)
[2021-01-07 06:00] VITALS: BP 93/51; PULSE 66; RESP 18; TEMP 36.4; O2SAT 97
[2021-01-07 09:01] VITALS: BP 95/53; PULSE 63
[2021-01-07] MEDS: Ferrous Sulfate 324 MG TABLET.DR PO (09:01)
[2021-01-07] MEDS: Levothyroxine Sodium 75 MCG TABLET PO (09:01)
[2021-01-07] MEDS: Aspirin Enteric Coated 81 MG TABLET.DR PO (09:02)
[2021-01-07] MEDS: Escitalopram Oxalate 5 MG TABLET PO (09:02)
[2021-01-07] MEDS: Omeprazole 20 MG CAPSULE.DR PO (09:02)
[2021-01-07] MEDS: Sertraline HCL 100 MG TABLET PO (09:03)
[2021-01-07] MEDS: Folic Acid 1 MG TABLET PO (09:03)
[2021-01-07] MEDS: Nicotine 21 MG PATCH.TD24 TRANSDERMA (09:20)
[2021-01-07] MEDS: Acetaminophen 325 MG TABLET 650 MG PO (16:16)
[2021-01-07] MEDS: Meclizine HCl 25 MG TABLET PO (16:16)
[2021-01-07 18:00] VITALS: BP 121/64; PULSE 78; RESP 16; TEMP 37.1; O2SAT 99
--- NOTE | 2021-01-07 18:40 | P.PNPSI_ITS ---
Subjective Subjective Date of Service: 01/07/21 Reason For Visit: SI/Chest pain Subjective Notes: Conditional Voluntary Interim History: Pt reports voice are still present telling him to kill himself. Depressive sx 8/ Vertigo still present as well. Met with pt and his hospice social worker, Viola DASH. Pt is [place] at many shelters she is told. [facility] in [place] is an option. Applications for other rest homes will be initiated. Discussed with pt changing Olanzapine to Risperdal to increase sx mgt of voices and decrease sedation possibly decreasing vertigo. He agrees. Medication Compliance: Yes Side effects from medications: No Attending Groups: Intermittent Review of Systems Acute medical concerns: No Medical Review of Systems: unchanged Review of Systems Psychiatric: Reports anxiety, Reports depression, Reports auditory halluci nations, Reports hopelessness, Reports paranoia and Reports suicidal ideation Mental Status Exam Mental Status Exam Patient Appearance: Fatigued and Disheveled Patient Orientation: Person, Place, Time and Situation Level of Consciousness: Awake and Alert Patient Behavior: Talkative and Good Eye Contact Mood Description: Depressed Affect Description: Flat Patient Cognition Impaired: No Ability to Follow Directions: Good Speech Pattern: Spontaneous Speech Memory Description: Intact Hallucinations: Auditory Thought Process: Distracted and Rumination Thought Content: positive for Suicidal Ideation Depressive Symptoms: Thoughts of /Suicide Judgement: Fair Diagnostics Vital Signs (24Hr): Vital Signs - 24 hr 01/06/21 22:00 01/07/21 06:00 01/07/21 09:01 Temperature 97.6 F Pulse Rate 76 66 63 Respiratory Rate 18 Blood Pressure 116/78 93/51 L 95/53 L Pulse Oximetry 97 Body Mass Index 29.8 Labs Results: 01/01/21 21:53 01/01/21 21:53 Labs: Laboratory Results - last 48 hr 01/06/21 01/06/21 10: 13:34 Troponin I High Sens < 3.5 D < 3.5 Imaging Radiology Impressions: ITS Impressions Chest X-Ray 01/01/21 21:13 IMPRESSION: 1. No acute abnormality. 2.Status post median sternotomy. 3. Enlargement of pulmonary arteries suggestive of pulmonary arterial hypertension. Medications Medications Current Medications Acetaminophen (Acetaminophen 325 Mg Tablet) 650 mg PO Q6H PRN PRN Reason: Headache/Pain Mild Scale (1-3) Last Admin: 01/07/21 16:16 Dose: 650 mg Documented by: Al Hydroxide/Mg Hydroxide (Magnesium Hydrox/Alum Hydrox 30 Ml Oral.Susp) 30 ml PO Q6H PRN PRN Reason: Heartburn/Nausea Aspirin (Aspirin Enteric Coated 81 Mg Tablet.) 81 mg PO DAILY [facility] Last Admin: 01/07/21 09:02 Dose: 81 mg Documented by: Atorvastatin Calcium (Atorvastatin Calcium 40 Mg Tablet) 40 mg PO BEDTIME [facility] Last Admin: 01/06/21 22:00 Dose: 40 mg Documented by: Cyanocobalamin (Cyanocobalamin (Vitamin B-12) 1,000 Mcg/Ml Vial) 1,000 mcg IM Q30D [facility] Last Admin: 01/05/21 13:22 Dose: 1,000 mcg Documented by: Escitalopram Oxalate (Escitalopram Oxalate 5 Mg Tablet) 5 mg PO DAILY [facility] Last Admin: 01/07/21 09:02 Dose: 5 mg Documented by: Ferrous Sulfate (Ferrous Sulfate 324 Mg Tablet.) 324 mg PO DAILY [facility] Last Admin: 01/07/21 09:01 Dose: 324 mg Documented by: Folic Acid (Folic Acid 1 Mg Tablet) 1 mg PO DAILY [facility] Last Admin: 01/07/21 09:03 Dose: 1 mg Documented by: Levothyroxine Sodium (Levothyroxine Sodium 75 Mcg Tablet) 75 mcg PO DAILY@0600 [facility] Last Admin: 01/07/21 09:01 Dose: 75 mcg Documented by: Lisinopril (Lisinopril 5 Mg Tablet) 5 mg PO DAILY [facility]; Protocol Last Admin: 01/07/21 09:01 Dose: Not Given Documented by: Lorazepam (Lorazepam 1 Mg Tablet) 1 mg PO Q4H PRN PRN Reason: anxiety Last Admin: 01/06/21 09:18 Dose: 1 mg Documented by: Magnesium Hydroxide (Milk Of Magnesia 30 Ml Oral.Susp) 30 ml PO DAILY PRN PRN Reason: Constipation Meclizine HCl (Meclizine Hcl 25 Mg Tablet) 25 mg PO Q8H PRN PRN Reason: Vertigo Last Admin: 01/07/21 16:16 Dose: 25 mg Documented by: Nicotine (Nicotine 21 Mg Patch.Td24) 21 mg TRANSDERMA DAILY [facility] Last Admin: 01/07/21 09:20 Dose: 21 mg Documented by: Olanzapine (Olanzapine 5 Mg Tablet) 5 mg PO BID PRN PRN Reason: auditory perceptual alterations Olanzapine (Olanzapine 5 Mg Tablet) 5 mg PO BEDTIME [facility] Last Admin: 01/06/21 22:00 Dose: 5 mg Documented by: Omeprazole (Omeprazole 20 Mg Capsule.) 20 mg PO DAILY@0630 [facility] Last Admin: 01/07/21 09:02 Dose: 20 mg Documented by: Prazosin HCl (Prazosin Hcl 1 Mg Capsule) 2 mg PO BEDTIME [facility]; Protocol Last Admin: 01/06/21 22:00 Dose: 2 mg Documented by: Sertraline HCl (Sertraline Hcl 100 Mg Tablet) 100 mg PO DAILY [facility] Last Admin: 01/07/21 09:03 Dose: 100 mg Documented by: Trazodone HCl (Trazodone Hcl 50 Mg Tablet) 50 mg PO BEDTIME PRN PRN Reason: Insomnia Last Admin: 01/06/21 22:04 Dose: 50 mg Documented by: Allergies Allergies Allergy/AdvReac Type Severity Reaction Status Date / Time bee pollen [bee stings] Allergy Intermediate Rash Verified 12/04/20 19:52 gluten AdvReac Intermediate Diarrhea Verified 12/04/20 19:51 Assessment & Plan Assessment & Plan (1) PTSD (post-traumatic stress disorder): Status: Acute Code(s): F43.10 - Post-traumatic stress disorder, unspecified (2) Severe recurrent major depression w/psychotic features, mood-congruent: Status: Acute Code(s): F33.3 - Major depressive disorder, recurrent, severe with psychotic symptoms Assessment and Plan: Discontinue Olanzapine Risperdal 0.5 mg bid Greater than 50% of the session was spent on counseling and/or coordination of care Patient educated on: medication risk/benefits Informed Consent: understands Reason for contiued inpatient stay Substantial Risk for: harm to self, inability to function and rapid decompensation
[2021-01-07 19:51] VITALS: BP 121/64; PULSE 78
[2021-01-07] MEDS: Prazosin HCL 1 MG CAPSULE 2 MG PO (19:51)
[2021-01-07] MEDS: risperiDONE 0.5 MG TABLET PO (19:53)
[2021-01-07] MEDS: Atorvastatin Calcium 40 MG TABLET PO (19:53)
[2021-01-08 06:00] VITALS: BP 108/55; PULSE 75
[2021-01-08] MEDS: Escitalopram Oxalate 5 MG TABLET PO (09:24)
[2021-01-08] MEDS: Nicotine 21 MG PATCH.TD24 TRANSDERMA (09:24)
[2021-01-08] MEDS: Levothyroxine Sodium 75 MCG TABLET PO (09:24)
[2021-01-08] MEDS: lisinopriL 5 MG TABLET PO (09:24)
[2021-01-08] MEDS: Omeprazole 20 MG CAPSULE.DR PO (09:24)
[2021-01-08] MEDS: Sertraline HCL 100 MG TABLET PO (09:25)
[2021-01-08] MEDS: Aspirin Enteric Coated 81 MG TABLET.DR PO (09:25)
[2021-01-08] MEDS: Folic Acid 1 MG TABLET PO (09:25)
[2021-01-08] MEDS: Ferrous Sulfate 324 MG TABLET.DR PO (09:25)
[2021-01-08] MEDS: risperiDONE 0.5 MG TABLET PO (09:25)
[2021-01-08] MEDS: Acetaminophen 325 MG TABLET 650 MG PO ×2 (14:31→22:25)
--- NOTE | 2021-01-08 17:42 | P.PNPSI_ITS ---
Subjective Subjective Date of Service: 01/08/21 Reason For Visit: SI/Chest pain Subjective Notes: Conditional Voluntary Interim History: Pt reports a 6 hour period of sleep which is an improvement for him. Reports voices are decreased but still present. Believes change to Risperdal has been helpful and asks for an increase. Reports ongoing intermittent vertigo and depressive sx are improved but when watching a horror film with peers last evening he finds that sx increase. Reported L third toe injury last evening-XRay obtained finding minimal displacement fracture dorsal base of third distal phalanx. Pt asks for Ibuprofen prn. Discussed difficulty with a female peer who is targeting of him and ideas on how to respond. Medication Compliance: Yes Side effects from medications: No Attending Groups: Yes Review of Systems Acute medical concerns: No Review of Systems Psychiatric: Reports anxiety, Reports depression, Reports auditory hallucinations, Reports hopelessness, Reports paranoia and Reports suicidal ideation Mental Status Exam Mental Status Exam Patient Appearance: Appropriate Patient Orientation: Person, Place, Time and Situation Level of Consciousness: Awake and Alert Patient Behavior: Talkative and Good Eye Contact Mood Description: Depressed and Anxious Affect Description: Flat Patient Cognition Impaired: No Ability to Follow Directions: Good Speech Pattern: Clear, Appropriate and Spontaneous Speech Memory Description: Intact Hallucinations: Auditory Thought Process: Distracted and Rumination Thought Content: positive for Suicidal Ideation Depressive Symptoms: Diff. Making Decisions and Thoughts of /Suicide Judgement: Fair Diagnostics Vital Signs (24Hr): Vital Signs - 24 hr 01/07/21 18:00 01/07/21 19:51 01/08/21 06:00 Temperature 98.7 F Pulse Rate 78 78 75 Respiratory Rate 16 Blood Pressure 121/64 121/64 108/55 L Pulse Oximetry 99 Body Mass Index 29.8 Labs Results: 01/01/21 21:53 01/01/21 21:53 Imaging Radiology Impressions: ITS Impressions Chest X-Ray 01/01/21 21:13 IMPRESSION: 1. No acute abnormality. 2.Status post median sternotomy. 3. Enlargement of pulmonary arteries suggestive of pulmonary arterial hypertension. Toe X-Ray 01/08/21 13:54 IMPRESSION: Minimally displaced fracture along the dorsal base of the 3rd distal phalanx. Medications Medications Current Medications Acetaminophen (Acetaminophen 325 Mg Tablet) 650 mg PO Q6H PRN PRN Reason: Headache/Pain Mild Scale (1-3) Last Admin: 01/08/21 14:31 Dose: 650 mg Documented by: Al Hydroxide/Mg Hydroxide (Magnesium Hydrox/Alum Hydrox 30 Ml Oral.Susp) 30 ml PO Q6H PRN PRN Reason: Heartburn/Nausea Aspirin (Aspirin Enteric Coated 81 Mg Tablet.) 81 mg PO DAILY [facility] Last Admin: 01/08/21 09:25 Dose: 81 mg Documented by: Atorvastatin Calcium (Atorvastatin Calcium 40 Mg Tablet) 40 mg PO BEDTIME [facility] Last Admin: 01/07/21 19:53 Dose: 40 mg Documented by: Cyanocobalamin (Cyanocobalamin (Vitamin B-12) 1,000 Mcg/Ml Vial) 1,000 mcg IM Q30D [facility] Last Admin: 01/05/21 13:22 Dose: 1,000 mcg Documented by: Escitalopram Oxalate (Escitalopram Oxalate 5 Mg Tablet) 5 mg PO DAILY [facility] Last Admin: 01/08/21 09:24 Dose: 5 mg Documented by: Ferrous Sulfate (Ferrous Sulfate 324 Mg Tablet.) 324 mg PO DAILY [facility] Last Admin: 01/08/21 09:25 Dose: 324 mg Documented by: Folic Acid (Folic Acid 1 Mg Tablet) 1 mg PO DAILY [facility] Last Admin: 01/08/21 09:25 Dose: 1 mg Documented by: Ibuprofen (Ibuprofen 800 Mg Tablet) 800 mg PO Q8H PRN PRN Reason: toe fracture Levothyroxine Sodium (Levothyroxine Sodium 75 Mcg Tablet) 75 mcg PO DAILY@0600 [facility] Last Admin: 01/08/21 09:24 Dose: 75 mcg Documented by: Lisinopril (Lisinopril 5 Mg Tablet) 5 mg PO DAILY [facility]; Protocol Last Admin: 01/08/21 09:24 Dose: 5 mg Documented by: Lorazepam (Lorazepam 1 Mg Tablet) 1 mg PO Q4H PRN PRN Reason: anxiety Last Admin: 01/06/21 09:18 Dose: 1 mg Documented by: Magnesium Hydroxide (Milk Of Magnesia 30 Ml Oral.Susp) 30 ml PO DAILY PRN PRN Reason: Constipation Meclizine HCl (Meclizine Hcl 25 Mg Tablet) 25 mg PO BID PRN PRN Reason: vertigo Nicotine (Nicotine 21 Mg Patch.Td24) 21 mg TRANSDERMA DAILY [facility] Last Admin: 01/08/21 09:24 Dose: 21 mg Documented by: Omeprazole (Omeprazole 20 Mg Capsule.) 20 mg PO DAILY@0630 [facility] Last Admin: 01/08/21 09:24 Dose: 20 mg Documented by: Prazosin HCl (Prazosin Hcl 1 Mg Capsule) 2 mg PO BEDTIME [facility]; Protocol Last Admin: 01/07/21 19:51 Dose: 2 mg Documented by: Risperidone (Risperidone 1 Mg Tablet) 1 mg PO BEDTIME [facility] Risperidone (Risperidone 0.5 Mg Tablet) 0.5 mg PO DAILY [facility] Sertraline HCl (Sertraline Hcl 100 Mg Tablet) 100 mg PO DAILY [facility] Last Admin: 01/08/21 09:25 Dose: 100 mg Documented by: Trazodone HCl (Trazodone Hcl 50 Mg Tablet) 50 mg PO BEDTIME PRN PRN Reason: Insomnia Last Admin: 01/06/21 22:04 Dose: 50 mg Documented by: Allergies Allergies Allergy/AdvReac Type Severity Reaction Status Date / Time bee pollen [bee stings] Allergy Intermediate Rash Verified 12/04/20 19:52 gluten AdvReac Intermediate Diarrhea Verified 12/04/20 19:51 Assessment & Plan Assessment & Plan (1) PTSD (post-traumatic stress disorder): Status: Acute Code(s): F43.10 - Post-traumatic stress disorder, unspecified (2) Severe recurrent major depression w/psychotic features, mood-congruent: Status: Acute Code(s): F33.3 - Major depressive disorder, recurrent, severe with psychotic symptoms Assessment and Plan: Increase Risperdal to 0.5 mg a.m. and 1 mg HS Ibuprofen prn for pain from displaced fx of toe. Greater than 50% of the session was spent on counseling and/or coordination of care Patient educated on: therapeutic strategies Informed Consent: understands Reason for contiued inpatient stay Substantial Risk for: inability to function
[2021-01-08] MEDS: Ibuprofen 800 MG TABLET PO (18:04)
[2021-01-08 22:20] VITALS: BP 105/54; PULSE 68; TEMP 36.7
[2021-01-08 22:23] VITALS: BP 105/54; PULSE 68
[2021-01-08] MEDS: Prazosin HCL 1 MG CAPSULE 2 MG PO (22:23)
[2021-01-08] MEDS: risperiDONE 1 MG TABLET PO (22:26)
[2021-01-08] MEDS: Atorvastatin Calcium 40 MG TABLET PO (22:26)
[2021-01-09 06:00] VITALS: BP 92/55; PULSE 78; RESP 16; TEMP 36.4; O2SAT 98
[2021-01-09] MEDS: Omeprazole 20 MG CAPSULE.DR PO (06:18)
[2021-01-09] MEDS: Levothyroxine Sodium 75 MCG TABLET PO (06:18)
[2021-01-09 09:09] VITALS: BP 104/57; PULSE 62
[2021-01-09] MEDS: risperiDONE 0.5 MG TABLET PO ×2 (09:09→15:10)
[2021-01-09] MEDS: Nicotine 21 MG PATCH.TD24 TRANSDERMA (09:09)
[2021-01-09] MEDS: Ferrous Sulfate 324 MG TABLET.DR PO (09:09)
[2021-01-09] MEDS: Sertraline HCL 100 MG TABLET PO (09:09)
[2021-01-09] MEDS: Folic Acid 1 MG TABLET PO (09:09)
[2021-01-09] MEDS: Aspirin Enteric Coated 81 MG TABLET.DR PO (09:09)
[2021-01-09] MEDS: lisinopriL 5 MG TABLET PO (09:09)
[2021-01-09] MEDS: Escitalopram Oxalate 5 MG TABLET PO (09:09)
[2021-01-09] MEDS: Ibuprofen 800 MG TABLET PO (09:15)
[2021-01-09 09:40] VITALS: BP 104/57; PULSE 62; TEMP 36.1; O2SAT 98
[2021-01-09] MEDS: Acetaminophen 325 MG TABLET 650 MG PO ×2 (11:25→17:21)
[2021-01-09 19:41] VITALS: BP 109/56; PULSE 78
[2021-01-09] MEDS: Atorvastatin Calcium 40 MG TABLET PO (19:41)
[2021-01-09] MEDS: risperiDONE 1 MG TABLET PO (19:41)
[2021-01-09] MEDS: Prazosin HCL 1 MG CAPSULE 2 MG PO (19:41)
--- NOTE | 2021-01-09 23:05 | P.PNPSI_ITS ---
Subjective Subjective Date of Service: 01/09/21 Reason For Visit: SI/Chest pain Mental Status Exam Mental Status Exam Patient Appearance: Appropriate Patient Orientation: Person, Place, Time and Situation Level of Consciousness: Awake and Alert Patient Behavior: Talkative and Good Eye Contact Mood Description: Depressed and Anxious Affect Description: Flat Patient Cognition Impaired: No Ability to Follow Directions: Good Speech Pattern: Clear, Appropriate and Spontaneous Speech Memory Description: Intact Hallucinations: Auditory Thought Process: Distracted and Rumination Thought Content: positive for Suicidal Ideation Depressive Symptoms: Diff. Making Decisions and Thoughts of /Suicide Judgement: Fair Diagnostics Vital Signs (24Hr): Vital Signs - 24 hr 01/09/21 06:00 01/09/21 09:09 01/09/21 09:40 Temperature 97.5 F 97.0 F Pulse Rate 78 62 62 Respiratory Rate 16 Blood Pressure 92/55 L 104/57 L 104/57 L Pulse Oximetry 98 98 01/09/21 19:41 Temperature Pulse Rate 78 Respiratory Rate Blood Pressure 109/56 L Pulse Oximetry Body Mass Index 29.8 Labs Results: 01/01/21 21:53 01/01/21 21:53 Imaging Radiology Impressions: ITS Impressions Chest X-Ray 01/01/21 21:13 IMPRESSION: 1. No acute abnormality. 2.Status post median sternotomy. 3. Enlargement of pulmonary arteries suggestive of pulmonary arterial hypertension. Toe X-Ray 01/08/21 13:54 IMPRESSION: Minimally displaced fracture along the dorsal base of the 3rd distal phalanx. Medications Medications Current Medications Acetaminophen (Acetaminophen 325 Mg Tablet) 650 mg PO Q6H PRN PRN Reason: Headache/Pain Mild Scale (1-3) Last Admin: 01/09/21 17:21 Dose: 650 mg Documented by: Al Hydroxide/Mg Hydroxide (Magnesium Hydrox/Alum Hydrox 30 Ml Oral.Susp) 30 ml PO Q6H PRN PRN Reason: Heartburn/Nausea Aspirin (Aspirin Enteric Coated 81 Mg Tablet.) 81 mg PO DAILY [facility] Last Admin: 01/09/21 09:09 Dose: 81 mg Documented by: Atorvastatin Calcium (Atorvastatin Calcium 40 Mg Tablet) 40 mg PO BEDTIME [facility] Last Admin: 01/09/21 19:41 Dose: 40 mg Documented by: Cyanocobalamin (Cyanocobalamin (Vitamin B-12) 1,000 Mcg/Ml Vial) 1,000 mcg IM Q30D [facility] Last Admin: 01/05/21 13:22 Dose: 1,000 mcg Documented by: Escitalopram Oxalate (Escitalopram Oxalate 5 Mg Tablet) 5 mg PO DAILY [facility] Last Admin: 01/09/21 09:09 Dose: 5 mg Documented by: Ferrous Sulfate (Ferrous Sulfate 324 Mg Tablet.) 324 mg PO DAILY [facility] Last Admin: 01/09/21 09:09 Dose: 324 mg Documented by: Folic Acid (Folic Acid 1 Mg Tablet) 1 mg PO DAILY [facility] Last Admin: 01/09/21 09:09 Dose: 1 mg Documented by: Ibuprofen (Ibuprofen 800 Mg Tablet) 800 mg PO Q8H PRN PRN Reason: toe fracture Last Admin: 01/09/21 09:15 Dose: 800 mg Documented by: Levothyroxine Sodium (Levothyroxine Sodium 75 Mcg Tablet) 75 mcg PO DAILY@0600 [facility] Last Admin: 01/09/21 06:18 Dose: 75 mcg Documented by: Lisinopril (Lisinopril 5 Mg Tablet) 5 mg PO DAILY [facility]; Protocol Last Admin: 01/09/21 09:09 Dose: 5 mg Documented by: Lorazepam (Lorazepam 1 Mg Tablet) 1 mg PO Q4H PRN PRN Reason: anxiety Last Admin: 01/06/21 09:18 Dose: 1 mg Documented by: Magnesium Hydroxide (Milk Of Magnesia 30 Ml Oral.Susp) 30 ml PO DAILY PRN PRN Reason: Constipation Meclizine HCl (Meclizine Hcl 25 Mg Tablet) 25 mg PO BID PRN PRN Reason: vertigo Nicotine (Nicotine 21 Mg Patch.Td24) 21 mg TRANSDERMA DAILY [facility] Last Admin: 01/09/21 09:09 Dose: 21 mg Documented by: Omeprazole (Omeprazole 20 Mg Capsule.) 20 mg PO DAILY@0630 [facility] Last Admin: 01/09/21 06:18 Dose: 20 mg Documented by: Prazosin HCl (Prazosin Hcl 1 Mg Capsule) 2 mg PO BEDTIME [facility]; Protocol Last Admin: 01/09/21 19:41 Dose: 2 mg Documented by: Risperidone (Risperidone 1 Mg Tablet) 1 mg PO BEDTIME [facility] Last Admin: 01/09/21 19:41 Dose: 1 mg Documented by: Risperidone (Risperidone 0.5 Mg Tablet) 0.5 mg PO DAILY [facility] Last Admin: 01/09/21 09:09 Dose: 0.5 mg Documented by: Risperidone (Risperidone 0.5 Mg Tablet) 0.5 mg PO Q4H PRN PRN Reason: Psychosis Last Admin: 01/09/21 15:10 Dose: 0.5 mg Documented by: Sertraline HCl (Sertraline Hcl 100 Mg Tablet) 100 mg PO DAILY [facility] Last Admin: 01/09/21 09:09 Dose: 100 mg Documented by: Trazodone HCl (Trazodone Hcl 50 Mg Tablet) 50 mg PO BEDTIME PRN PRN Reason: Insomnia Last Admin: 01/06/21 22:04 Dose: 50 mg Documented by: Allergies Allergies Allergy/AdvReac Type Severity Reaction Status Date / Time bee pollen [bee stings] Allergy Intermediate Rash Verified 12/04/20 19:52 gluten AdvReac Intermediate Diarrhea Verified 12/04/20 19:51 Assessment & Plan Assessment & Plan (1) PTSD (post-traumatic stress disorder): Status: Acute Code(s): F43.10 - Post-traumatic stress disorder, unspecified (2) Severe recurrent major depression w/psychotic features, mood-congruent: Status: Acute Code(s): F33.3 - Major depressive disorder, recurrent, severe with psychotic symptoms Assessment and Plan: continue Risperdal to 0.5 mg a.m. and 1 mg HS add risperadol prn Ibuprofen prn for pain from displaced fx of toe. Greater than 50% of the session was spent on counseling and/or coordination of care Reason for contiued inpatient stay Substantial Risk for: inability to function and rapid decompensation
[2021-01-10 06:00] VITALS: BP 103/52; PULSE 62; RESP 18; TEMP 36.2; O2SAT 98
[2021-01-10] MEDS: Omeprazole 20 MG CAPSULE.DR PO (06:53)
[2021-01-10] MEDS: Levothyroxine Sodium 75 MCG TABLET PO (06:53)
[2021-01-10 09:05] VITALS: BP 118/59; PULSE 63; RESP 17; TEMP 37.2; O2SAT 98
[2021-01-10] MEDS: Aspirin Enteric Coated 81 MG TABLET.DR PO (09:06)
[2021-01-10] MEDS: Nicotine 21 MG PATCH.TD24 TRANSDERMA (09:06)
[2021-01-10] MEDS: Escitalopram Oxalate 5 MG TABLET PO (09:06)
[2021-01-10] MEDS: Folic Acid 1 MG TABLET PO (09:06)
[2021-01-10] MEDS: Sertraline HCL 100 MG TABLET PO (09:06)
[2021-01-10] MEDS: risperiDONE 0.5 MG TABLET PO ×2 (09:06→13:07)
[2021-01-10] MEDS: Ibuprofen 800 MG TABLET PO ×2 (09:06→17:03)
[2021-01-10] MEDS: Ferrous Sulfate 324 MG TABLET.DR PO (09:06)
[2021-01-10 09:07] VITALS: BP 118/59; PULSE 63
[2021-01-10] MEDS: lisinopriL 5 MG TABLET PO (09:07)
--- NOTE | 2021-01-10 10:31 | P.PNPSI_ITS ---
Subjective Subjective Date of Service: 01/10/21 Reason For Visit: SI/Chest pain Subjective Notes: Conditional Voluntary Interim History: Patient has not been experiencing chest pain continues to complain of intrusive hallucinations of a negative and persecutory nature denies active self-harm in this setting Medication Compliance: Yes Mental Status Exam Mental Status Exam Patient Appearance: Appropriate Patient Orientation: Person, Place, Time and Situation Level of Consciousness: Awake and Alert Patient Behavior: Talkative and Good Eye Contact Mood Description: Depressed and Anxious Affect Description: Flat Patient Cognition Impaired: No Ability to Follow Directions: Good Speech Pattern: Clear, Appropriate and Spontaneous Speech Memory Description: Intact Hallucinations: Auditory Thought Process: Distracted and Rumination Thought Content: positive for Suicidal Ideation Depressive Symptoms: Diff. Making Decisions and Thoughts of /Suicide Judgement: Fair Diagnostics Vital Signs (24Hr): Vital Signs - 24 hr 01/09/21 19:41 01/10/21 06:00 01/10/21 09:05 Temperature 97.2 F 98.9 F Pulse Rate 78 62 63 Respiratory Rate 18 17 Blood Pressure 109/56 L 103/52 L 118/59 L Pulse Oximetry 98 98 01/10/21 09:07 Temperature Pulse Rate 63 Respiratory Rate Blood Pressure 118/59 L Pulse Oximetry Body Mass Index 29.8 Labs Results: 01/01/21 21:53 01/01/21 21:53 Imaging Radiology Impressions: ITS Impressions Chest X-Ray 01/01/21 21:13 IMPRESSION: 1. No acute abnormality. 2.Status post median sternotomy. 3. Enlargement of pulmonary arteries suggestive of pulmonary arterial hypertension. Toe X-Ray 01/08/21 13:54 IMPRESSION: Minimally displaced fracture along the dorsal base of the 3rd distal phalanx. Medications Medications Current Medications Acetaminophen (Acetaminophen 325 Mg Tablet) 650 mg PO Q6H PRN PRN Reason: Headache/Pain Mild Scale (1-3) Last Admin: 01/09/21 17:21 Dose: 650 mg Documented by: Al Hydroxide/Mg Hydroxide (Magnesium Hydrox/Alum Hydrox 30 Ml Oral.Susp) 30 ml PO Q6H PRN PRN Reason: Heartburn/Nausea Aspirin (Aspirin Enteric Coated 81 Mg Tablet.) 81 mg PO DAILY [facility] Last Admin: 01/10/21 09:06 Dose: 81 mg Documented by: Atorvastatin Calcium (Atorvastatin Calcium 40 Mg Tablet) 40 mg PO BEDTIME [facility] Last Admin: 01/09/21 19:41 Dose: 40 mg Documented by: Cyanocobalamin (Cyanocobalamin (Vitamin B-12) 1,000 Mcg/Ml Vial) 1,000 mcg IM Q30D [facility] Last Admin: 01/05/21 13:22 Dose: 1,000 mcg Documented by: Escitalopram Oxalate (Escitalopram Oxalate 5 Mg Tablet) 5 mg PO DAILY [facility] Last Admin: 01/10/21 09:06 Dose: 5 mg Documented by: Ferrous Sulfate (Ferrous Sulfate 324 Mg Tablet.) 324 mg PO DAILY [facility] Last Admin: 01/10/21 09:06 Dose: 324 mg Documented by: Folic Acid (Folic Acid 1 Mg Tablet) 1 mg PO DAILY [facility] Last Admin: 01/10/21 09:06 Dose: 1 mg Documented by: Ibuprofen (Ibuprofen 800 Mg Tablet) 800 mg PO Q8H PRN PRN Reason: toe fracture Last Admin: 01/10/21 09:06 Dose: 800 mg Documented by: Levothyroxine Sodium (Levothyroxine Sodium 75 Mcg Tablet) 75 mcg PO DAILY@0600 [facility] Last Admin: 01/10/21 06:53 Dose: 75 mcg Documented by: Lisinopril (Lisinopril 5 Mg Tablet) 5 mg PO DAILY [facility]; Protocol Last Admin: 01/10/21 09:07 Dose: 5 mg Documented by: Lorazepam (Lorazepam 1 Mg Tablet) 1 mg PO Q4H PRN PRN Reason: anxiety Last Admin: 01/06/21 09:18 Dose: 1 mg Documented by: Magnesium Hydroxide (Milk Of Magnesia 30 Ml Oral.Susp) 30 ml PO DAILY PRN PRN Reason: Constipation Meclizine HCl (Meclizine Hcl 25 Mg Tablet) 25 mg PO BID PRN PRN Reason: vertigo Nicotine (Nicotine 21 Mg Patch.Td24) 21 mg TRANSDERMA DAILY [facility] Last Admin: 01/10/21 09:06 Dose: 21 mg Documented by: Omeprazole (Omeprazole 20 Mg Capsule.) 20 mg PO DAILY@0630 [facility] Last Admin: 01/10/21 06:53 Dose: 20 mg Documented by: Prazosin HCl (Prazosin Hcl 1 Mg Capsule) 2 mg PO BEDTIME [facility]; Protocol Last Admin: 01/09/21 19:41 Dose: 2 mg Documented by: Risperidone (Risperidone 1 Mg Tablet) 1 mg PO BEDTIME [facility] Last Admin: 01/09/21 19:41 Dose: 1 mg Documented by: Risperidone (Risperidone 0.5 Mg Tablet) 0.5 mg PO DAILY [facility] Last Admin: 01/10/21 09:06 Dose: 0.5 mg Documented by: Risperidone (Risperidone 0.5 Mg Tablet) 0.5 mg PO Q4H PRN PRN Reason: Psychosis Last Admin: 01/09/21 15:10 Dose: 0.5 mg Documented by: Sertraline HCl (Sertraline Hcl 100 Mg Tablet) 100 mg PO DAILY [facility] Last Admin: 01/10/21 09:06 Dose: 100 mg Documented by: Trazodone HCl (Trazodone Hcl 50 Mg Tablet) 50 mg PO BEDTIME PRN PRN Reason: Insomnia Last Admin: 01/06/21 22:04 Dose: 50 mg Documented by: Allergies Allergies Allergy/AdvReac Type Severity Reaction Status Date / Time bee pollen [bee stings] Allergy Intermediate Rash Verified 12/04/20 19:52 gluten AdvReac Intermediate Diarrhea Verified 12/04/20 19:51 Assessment & Plan Assessment & Plan (1) PTSD (post-traumatic stress disorder): Status: Acute Code(s): F43.10 - Post-traumatic stress disorder, unspecified (2) Severe recurrent major depression w/psychotic features, mood-congruent: Status: Acute Code(s): F33.3 - Major depressive disorder, recurrent, severe with psychotic symptoms Assessment and Plan: Increase Risperdal to 1 mg p.o. b.i.d.. Discontinue Meclizine. / Lexapro somewhat elevated QTC can be contributing factors continue sertraline intermitt ent self-harming thoughts and hallucinations of command nature monitor safety Consider Abilify Greater than 50% of the session was spent on counseling and/or coordination of care Reason for contiued inpatient stay Substantial Risk for: harm to self and med/psych decompensation
[2021-01-10] MEDS: Acetaminophen 325 MG TABLET 650 MG PO ×2 (11:30→22:06)
[2021-01-10 20:26] VITALS: BP 108/56; PULSE 74
[2021-01-10] MEDS: Prazosin HCL 1 MG CAPSULE 2 MG PO (20:26)
[2021-01-10] MEDS: risperiDONE 1 MG TABLET PO (20:26)
[2021-01-10] MEDS: Atorvastatin Calcium 40 MG TABLET PO (20:26)
[2021-01-11 06:00] VITALS: BP 90/45; PULSE 61; RESP 18; TEMP 36.6; O2SAT 98
[2021-01-11] MEDS: Levothyroxine Sodium 75 MCG TABLET PO (06:57)
[2021-01-11] MEDS: Omeprazole 20 MG CAPSULE.DR PO (06:57)
[2021-01-11] MEDS: Nicotine 21 MG PATCH.TD24 TRANSDERMA (08:14)
[2021-01-11 08:17] VITALS: BP 115/59; PULSE 67; RESP 16; TEMP 36.8; O2SAT 99
[2021-01-11 08:18] VITALS: BP 115/59; PULSE 67
[2021-01-11] MEDS: lisinopriL 5 MG TABLET PO (08:18)
[2021-01-11] MEDS: Sertraline HCL 100 MG TABLET PO (08:19)
[2021-01-11] MEDS: Aspirin Enteric Coated 81 MG TABLET.DR PO (08:19)
[2021-01-11] MEDS: Ferrous Sulfate 324 MG TABLET.DR PO (08:19)
[2021-01-11] MEDS: risperiDONE 1 MG TABLET PO ×2 (08:19→19:56)
[2021-01-11] MEDS: Folic Acid 1 MG TABLET PO (08:19)
[2021-01-11] MEDS: Acetaminophen 325 MG TABLET 650 MG PO (15:36)
[2021-01-11 18:00] VITALS: BP 102/57; PULSE 73; RESP 16; TEMP 36.2; O2SAT 99
[2021-01-11 19:56] VITALS: BP 102/57; PULSE 73
[2021-01-11] MEDS: Prazosin HCL 1 MG CAPSULE 2 MG PO (19:56)
[2021-01-11] MEDS: Atorvastatin Calcium 40 MG TABLET PO (19:56)
[2021-01-11] MEDS: Ibuprofen 800 MG TABLET PO (20:00)
--- NOTE | 2021-01-11 20:05 | P.PNPSI_ITS ---
Subjective Subjective Date of Service: 01/11/21 Reason For Visit: SI/Chest pain Subjective Notes: Conditional Voluntary Interim History: Tolerating increase in Risperdal. Working with team on possible housing options. Will be seen by [facility] team to interview for a room. Pt discussed legal history. Upon discharge, he needs to go to the local police station and clarify current status. This is unable to be completed via phone, only in person. Medication Compliance: Yes Side effects from medications: No Attending Groups: Yes Review of Systems Acute medical concerns: No Medical Review of Systems: unchanged Review of Systems Psychiatric: Reports anxiety, Reports depression, Reports auditory hallucinations, Reports paranoia and Reports suicidal ideation Mental Status Exam Mental Status Exam Patient Appearance: Appropriate Patient Orientation: Person, Place, Time and Situation Level of Consciousness: Awake and Alert Patient Behavior: Talkative Mood Description: Withdrawn Affect Description: Flat Patient Cognition Impaired: No Ability to Follow Directions: Good Speech Pattern: Spontaneous Speech Memory Description: Intact Hallucinations: Auditory Delusions: Paranoid Ideation Thought Process: Rumination Thought Content: positive for [place], positive for [place], positive for Persever[place] and positive for Suicidal Ideation Depressive Symptoms: Increased Anxiety and Thoughts of /Suicide Judgement: Fair Diagnostics Vital Signs (24Hr): Vital Signs - 24 hr 01/10/21 20:26 01/11/21 06:00 01/11/21 08:17 Temperature 97.8 F 98.3 F Pulse Rate 74 61 67 Respiratory Rate 18 16 Blood Pressure 108/56 L 90/45 L 115/59 L Pulse Oximetry 98 99 01/11/21 08:18 01/11/21 18:00 01/11/21 19:56 Temperature 97.1 F Pulse Rate 67 73 73 Respiratory Rate 16 Blood Pressure 115/59 L 102/57 L 102/57 L Pulse Oximetry 99 Body Mass Index 29.8 Labs Results: 01/01/21 21:53 01/01/21 21:53 Imaging Radiology Impressions: ITS Impressions Chest X-Ray 01/01/21 21:13 IMPRESSION: 1. No acute abnormality. 2.Status post median sternotomy. 3. Enlargement of pulmonary arteries suggestive of pulmonary arterial hypertension. Toe X-Ray 01/08/21 13:54 IMPRESSION: Minimally displaced fracture along the dorsal base of the 3rd distal phalanx. Medications Medications Current Medications Acetaminophen (Acetaminophen 325 Mg Tablet) 650 mg PO Q6H PRN PRN Reason: Headache/Pain Mild Scale (1-3) Last Admin: 01/11/21 15:36 Dose: 650 mg Documented by: Al Hydroxide/Mg Hydroxide (Magnesium Hydrox/Alum Hydrox 30 Ml Oral.Susp) 30 ml PO Q6H PRN PRN Reason: Heartburn/Nausea Aspirin (Aspirin Enteric Coated 81 Mg Tablet.) 81 mg PO DAILY [facility] Last Admin: 01/11/21 08:19 Dose: 81 mg Documented by: Atorvastatin Calcium (Atorvastatin Calcium 40 Mg Tablet) 40 mg PO BEDTIME [facility] Last Admin: 01/11/21 19:56 Dose: 40 mg Documented by: Cyanocobalamin (Cyanocobalamin (Vitamin B-12) 1,000 Mcg/Ml Vial) 1,000 mcg IM Q30D [facility] Last Admin: 01/05/21 13:22 Dose: 1,000 mcg Documented by: Ferrous Sulfate (Ferrous Sulfate 324 Mg Tablet.) 324 mg PO DAILY [facility] Last Admin: 01/11/21 08:19 Dose: 324 mg Documented by: Folic Acid (Folic Acid 1 Mg Tablet) 1 mg PO DAILY [facility] Last Admin: 01/11/21 08:19 Dose: 1 mg Documented by: Ibuprofen (Ibuprofen 800 Mg Tablet) 800 mg PO Q8H PRN PRN Reason: toe fracture Last Admin: 01/11/21 20:00 Dose: 800 mg Documented by: Levothyroxine Sodium (Levothyroxine Sodium 75 Mcg Tablet) 75 mcg PO DAILY@0600 [facility] Last Admin: 01/11/21 06:57 Dose: 75 mcg Documented by: Lisinopril (Lisinopril 5 Mg Tablet) 5 mg PO DAILY [facility]; Protocol Last Admin: 01/11/21 08:18 Dose: 5 mg Documented by: Lorazepam (Lorazepam 1 Mg Tablet) 1 mg PO Q4H PRN PRN Reason: anxiety Last Admin: 01/06/21 09:18 Dose: 1 mg Documented by: Magnesium Hydroxide (Milk Of Magnesia 30 Ml Oral.Susp) 30 ml PO DAILY PRN PRN Reason: Constipation Nicotine (Nicotine 21 Mg Patch.Td24) 21 mg TRANSDERMA DAILY [facility] Last Admin: 01/11/21 08:14 Dose: 21 mg Documented by: Omeprazole (Omeprazole 20 Mg Capsule.) 20 mg PO DAILY@0630 [facility] Last Admin: 10/18/21 06:57 Dose: 20 mg Documented by: Prazosin HCl (Prazosin Hcl 1 Mg Capsule) 2 mg PO BEDTIME [facility]; Protocol Last Admin: 01/11/21 19:56 Dose: 2 mg Documented by: Risperidone (Risperidone 0.5 Mg Tablet) 0.5 mg PO Q4H PRN PRN Reason: Psychosis Last Admin: 01/10/21 13:07 Dose: 0.5 mg Documented by: Risperidone (Risperidone 1 Mg Tablet) 1 mg PO BID [facility] Last Admin: 01/11/21 19:56 Dose: 1 mg Documented by: Sertraline HCl (Sertraline Hcl 100 Mg Tablet) 100 mg PO DAILY [facility] Last Admin: 01/11/21 08:19 Dose: 100 mg Documented by: Trazodone HCl (Trazodone Hcl 50 Mg Tablet) 50 mg PO BEDTIME PRN PRN Reason: Insomnia Last Admin: 01/06/21 22:04 Dose: 50 mg Documented by: Allergies Allergies Allergy/AdvReac Type Severity Reaction Status Date / Time bee pollen [bee stings] Allergy Intermediate Rash Verified 12/04/20 19:52 gluten AdvReac Intermediate Diarrhea Verified 12/04/20 19:51 Assessment & Plan Assessment & Plan (1) PTSD (post-traumatic stress disorder): Status: Acute Code(s): F43.10 - Post-traumatic stress disorder, unspecified (2) Severe recurrent major depression w/psychotic features, mood-congruent: Status: Acute Code(s): F33.3 - Major depressive disorder, recurrent, severe with psychotic symptoms Assessment and Plan: Continue current plan of care. Greater than 50% of the session was spent on counseling and/or coordination of care Patient educated on: medication risk/benefits and therapeutic strategies Informed Consent: understands and further education needed Reason for contiued inpatient stay Substantial Risk for: harm to self, inability to function and rapid dec ompensation
[2021-01-12 08:30] VITALS: BP 98/57; PULSE 71; RESP 15; TEMP 37.2; O2SAT 98
[2021-01-12] MEDS: Sertraline HCL 100 MG TABLET PO (08:31)
[2021-01-12] MEDS: Ferrous Sulfate 324 MG TABLET.DR PO (08:32)
[2021-01-12] MEDS: Levothyroxine Sodium 75 MCG TABLET PO (08:32)
[2021-01-12] MEDS: Folic Acid 1 MG TABLET PO (08:32)
[2021-01-12 08:33] VITALS: BP 98/57; PULSE 71
[2021-01-12] MEDS: lisinopriL 5 MG TABLET PO (08:33)
[2021-01-12] MEDS: risperiDONE 1 MG TABLET PO ×2 (08:34→19:54)
[2021-01-12] MEDS: Aspirin Enteric Coated 81 MG TABLET.DR PO (08:35)
[2021-01-12] MEDS: Omeprazole 20 MG CAPSULE.DR PO (08:35)
[2021-01-12] MEDS: Nicotine 21 MG PATCH.TD24 TRANSDERMA (08:35)
--- NOTE | 2021-01-12 11:33 | P.PNPSI_ITS ---
Subjective Subjective Date of Service: 01/12/21 Reason For Visit: SI/Chest pain Subjective Notes: Conditional Voluntary Healthcare Proxy: No Guardianship: No Medical Problems Affecting Mental Status: No Interim History: Pt reports some anxiety having interviewed for a placement with [facility]. Reports some voices which he is able to redirect, denies SI and states he is thinking more toward his future. Medication Compliance: Yes Side effects from medications: No Attending Groups: Yes Review of Systems Acute medical concerns: No Medical Review of Systems: unchanged Review of Systems Psychiatric: Reports anxiety and Reports depression Mental Status Exam Mental Status Exam Patient Appearance: Appropriate Patient Orientation: Person, Place, Time and Situation Level of Consciousness: Awake and Alert Patient Behavior: Talkative Mood Description: Apprehensive Affect Description: Flat and Apprehensive Patient Cognition Impaired: No Ability to Follow Directions: Good Speech Pattern: Spontaneous Speech Memory Description: Intact Hallucinations: None Thought Process: Rumination Thought Content: positive for [place], positive for [place] and positive for [place]severation Depressive Symptoms: Increased Anxiety Judgement: Good Diagnostics Vital Signs (24Hr): Vital Signs - 24 hr 01/11/21 18:00 01/11/21 19:56 01/12/21 08:30 Temperature 97.1 F 99 F Pulse Rate 73 73 71 Respiratory Rate 16 15 Blood Pressure 102/57 L 102/57 L 98/57 L Pulse Oximetry 99 98 01/12/21 08:33 Temperature Pulse Rate 71 Respiratory Rate Blood Pressure 98/57 L Pulse Oximetry Body Mass Index 29.8 Labs Results: 01/01/21 21:53 01/01/21 21:53 Imaging Radiology Impressions: ITS Impressions Chest X-Ray 01/01/21 21:13 IMPRESSION: 1. No acute abnormality. 2.Status post median sternotomy. 3. Enlargement of pulmonary arteries suggestive of pulmonary arterial hypertension. Toe X-Ray 01/08/21 13:54 IMPRESSION: Minimally displaced fracture along the dorsal base of the 3rd distal phalanx. Medications Medications Current Medications Acetaminophen (Acetaminophen 325 Mg Tablet) 650 mg PO Q6H PRN PRN Reason: Headache/Pain Mild Scale (1-3) Last Admin: 01/11/21 15:36 Dose: 650 mg Documented by: Al Hydroxide/Mg Hydroxide (Magnesium Hydrox/Alum Hydrox 30 Ml Oral.Susp) 30 ml PO Q6H PRN PRN Reason: Heartburn/Nausea Aspirin (Aspirin Enteric Coated 81 Mg Tablet.) 81 mg PO DAILY [facility] Last Admin: 01/12/21 08:35 Dose: 81 mg Documented by: Atorvastatin Calcium (Atorvastatin Calcium 40 Mg Tablet) 40 mg PO BEDTIME [facility] Last Admin: 01/11/21 19:56 Dose: 40 mg Documented by: Cyanocobalamin (Cyanocobalamin (Vitamin B-12) 1,000 Mcg/Ml Vial) 1,000 mcg IM Q30D [facility] Last Admin: 01/05/21 13:22 Dose: 1,000 mcg Documented by: Ferrous Sulfate (Ferrous Sulfate 324 Mg Tablet.) 324 mg PO DAILY [facility] Last Admin: 01/12/21 08:32 Dose: 324 mg Documented by: Folic Acid (Folic Acid 1 Mg Tablet) 1 mg PO DAILY [facility] Last Admin: 01/12/21 08:32 Dose: 1 mg Documented by: Ibuprofen (Ibuprofen 800 Mg Tablet) 800 mg PO Q8H PRN PRN Reason: toe fracture Last Admin: 01/11/21 20:00 Dose: 800 mg Documented by: Levothyroxine Sodium (Levothyroxine Sodium 75 Mcg Tablet) 75 mcg PO DAILY@0600 [facility] Last Admin: 01/12/21 08:32 Dose: 75 mcg Documented by: Lisinopril (Lisinopril 5 Mg Tablet) 5 mg PO DAILY [facility]; Protocol Last Admin: 01/12/21 08:33 Dose: 5 mg Documented by: Lorazepam (Lorazepam 1 Mg Tablet) 1 mg PO Q4H PRN PRN Reason: anxiety Last Admin: 01/06/21 09:18 Dose: 1 mg Documented by: Magnesium Hydroxide (Milk Of Magnesia 30 Ml Oral.Susp) 30 ml PO DAILY PRN PRN Reason: Constipation Nicotine (Nicotine 21 Mg Patch.Td24) 21 mg TRANSDERMA DAILY [facility] Last Admin: 01/12/21 08:35 Dose: 21 mg Documented by: Omeprazole (Omeprazole 20 Mg Capsule.) 20 mg PO DAILY@0630 [facility] Last Admin: 01/12/21 08:35 Dose: 20 mg Documented by: Prazosin HCl (Prazosin Hcl 1 Mg Capsule) 2 mg PO BEDTIME [facility]; Protocol Last Admin: 01/11/21 19:56 Dose: 2 mg Documented by: Risperidone (Risperidone 0.5 Mg Tablet) 0.5 mg PO Q4H PRN PRN Reason: Psychosis Last Admin: 01/10/21 13:07 Dose: 0.5 mg Documented by: Risperidone (Risperidone 1 Mg Tablet) 1 mg PO BID [facility] Last Admin: 01/12/21 08:34 Dose: 1 mg Documented by: Sertraline HCl (Sertraline Hcl 100 Mg Tablet) 100 mg PO DAILY [facility] Last Admin: 01/12/21 08:31 Dose: 100 mg Documented by: Trazodone HCl (Trazodone Hcl 50 Mg Tablet) 50 mg PO BEDTIME PRN PRN Reason: Insomnia Last Admin: 01/06/21 22:04 Dose: 50 mg Documented by: Allergies Allergies Allergy/AdvReac Type Severity Reaction Status Date / Time bee pollen [bee stings] Allergy Intermediate Rash Verified 12/04/20 19:52 gluten AdvReac Intermediate Diarrhea Verified 12/04/20 19:51 Assessment & Plan Assessment & Plan (1) PTSD (post-traumatic stress disorder): Status: Acute Code(s): F43.10 - Post-traumatic stress disorder, unspecified (2) Severe recurrent major depression w/psychotic features, mood-congruent: Status: Acute Code(s): F33.3 - Major depressive disorder, recurrent, severe with psychotic symptoms Assessment and Plan: Continue current plan of care. Greater than 50% of the session was spent on counseling and/or coordination of care Patient educated on: medication risk/benefits, therapeutic strategies and medical condition Informed Consent: understands Reason for contiued inpatient stay Substantial Risk for: stable for discharge
[2021-01-12 16:47] VITALS: BP 123/58; PULSE 66; RESP 18; TEMP 36.7; O2SAT 100
[2021-01-12 19:53] VITALS: BP 128/61; PULSE 71
[2021-01-12] MEDS: Prazosin HCL 1 MG CAPSULE 2 MG PO (19:53)
[2021-01-12] MEDS: Atorvastatin Calcium 40 MG TABLET PO (19:54)
[2021-01-12] MEDS: Ibuprofen 800 MG TABLET PO (19:54)
[2021-01-13 06:00] VITALS: BP 115/54; PULSE 66; RESP 16; TEMP 36; O2SAT 96
[2021-01-13 08:12] VITALS: BP 123/65; PULSE 69; TEMP 36.7; O2SAT 100
[2021-01-13 08:15] VITALS: BP 123/65; PULSE 69
[2021-01-13] MEDS: lisinopriL 5 MG TABLET PO (08:15)
[2021-01-13] MEDS: Omeprazole 20 MG CAPSULE.DR PO (08:15)
[2021-01-13] MEDS: Ferrous Sulfate 324 MG TABLET.DR PO (08:15)
[2021-01-13] MEDS: Aspirin Enteric Coated 81 MG TABLET.DR PO (08:15)
[2021-01-13] MEDS: Folic Acid 1 MG TABLET PO (08:16)
[2021-01-13] MEDS: Sertraline HCL 100 MG TABLET PO (08:16)
[2021-01-13] MEDS: Levothyroxine Sodium 75 MCG TABLET PO (08:17)
[2021-01-13] MEDS: risperiDONE 1 MG TABLET PO ×2 (08:17→21:01)
[2021-01-13] MEDS: Nicotine 21 MG PATCH.TD24 TRANSDERMA (09:23)
[2021-01-13] MEDS: risperiDONE 0.5 MG TABLET PO (13:34)
[2021-01-13] MEDS: LORazepam 1 MG TABLET PO (13:34)
[2021-01-13 18:00] VITALS: BP 118/56; PULSE 78; RESP 18; TEMP 37; O2SAT 98
[2021-01-13 21:01] VITALS: BP 112/77; PULSE 79
[2021-01-13] MEDS: Atorvastatin Calcium 40 MG TABLET PO (21:01)
[2021-01-13] MEDS: Prazosin HCL 1 MG CAPSULE 2 MG PO (21:01)
[2021-01-13] MEDS: Docusate Sodium 100 MG CAPSULE PO (21:01)
--- NOTE | 2021-01-13 21:49 | P.PNPSI_ITS ---
Subjective Subjective Date of Service: 01/13/21 Reason For Visit: SI/Chest pain Subjective Notes: Conditional Voluntary Healthcare Proxy: No Guardianship: No Medical Problems Affecting Mental Status: No Interim History: Reports minimal auditory perceptual alterations and believes medications are helping. Reports constipation. Colace ordered. States he is anxious regarding new placement tomorrow but is looking forward to a new housing situation. Meds sent to [facility]. Pt will work with [facility] and [facility] . By history he has been denied [facility] services. Medication Compliance: Yes Side effects from medications: No Attending Groups: Yes Review of Systems Acute medical concerns: No Medical Review of Systems: unchanged Review of Systems Psychiatric: Reports anxiety and Reports depression Mental Status Exam Mental Status Exam Patient Appearance: Appropriate Patient Orientation: Person, Place, Time and Situation Level of Consciousness: Awake and Alert Patient Behavior: Talkative Mood Description: Apprehensive Affect Description: Flat and Apprehensive Patient Cognition Impaired: No Ability to Follow Directions: Good Speech Pattern: Spontaneous Speech Memory Description: Intact Hallucinations: None Thought Process: Rumination Thought Content: positive for [place], positive for [place] and positive for [place] Depressive Symptoms: Increased Anxiety Judgement: Good Diagnostics Vital Signs (24Hr): Vital Signs - 24 hr 01/13/21 06:00 01/13/21 08:12 01/13/21 08:15 Temperature 96.8 F 98.1 F Pulse Rate 66 69 69 Respiratory Rate 16 Blood Pressure 115/54 L 123/65 123/65 Pulse Oximetry 96 100 01/13/21 18:00 01/13/21 21:01 Temperature 98.6 F Pulse Rate 78 79 Respiratory Rate 18 Blood Pressure 118/56 L 112/77 Pulse Oximetry 98 Body Mass Index 29.8 Labs Results: 01/01/21 21:53 01/01/21 21:53 Imaging Radiology Impressions: ITS Impressions Chest X-Ray 01/01/21 21:13 IMPRESSION: 1. No acute abnormality. 2.Status post median sternotomy. 3. Enlargement of pulmonary arteries suggestive of pulmonary arterial hypertension. Toe X-Ray 01/08/21 13:54 IMPRESSION: Minimally displaced fracture along the dorsal base of the 3rd distal phalanx. Medications Medications Current Medications Acetaminophen (Acetaminophen 325 Mg Tablet) 650 mg PO Q6H PRN PRN Reason: Headache/Pain Mild Scale (1-3) Last Admin: 01/11/21 15:36 Dose: 650 mg Documented by: Al Hydroxide/Mg Hydroxide (Magnesium Hydrox/Alum Hydrox 30 Ml Oral.Susp) 30 ml PO Q6H PRN PRN Reason: Heartburn/Nausea Aspirin (Aspirin Enteric Coated 81 Mg Tablet.) 81 mg PO DAILY [facility] Last Admin: 01/13/21 08:15 Dose: 81 mg Documented by: Atorvastatin Calcium (Atorvastatin Calcium 40 Mg Tablet) 40 mg PO BEDTIME [facility] Last Admin: 01/13/21 21:01 Dose: 40 mg Documented by: Cyanocobalamin (Cyanocobalamin (Vitamin B-12) 1,000 Mcg/Ml Vial) 1,000 mcg IM Q30D [facility] Last Admin: 01/05/21 13:22 Dose: 1,000 mcg Documented by: Docusate Sodium (Docusate Sodium 100 Mg Capsule) 100 mg PO BID [facility] Last Admin: 01/13/21 21:01 Dose: 100 mg Documented by: Ferrous Sulfate (Ferrous Sulfate 324 Mg Tablet.) 324 mg PO DAILY [facility] Last Admin: 01/13/21 08:15 Dose: 324 mg Documented by: Folic Acid (Folic Acid 1 Mg Tablet) 1 mg PO DAILY [facility] Last Admin: 01/13/21 08:16 Dose: 1 mg Documented by: Ibuprofen (Ibuprofen 800 Mg Tablet) 800 mg PO Q8H PRN PRN Reason: toe fracture Last Admin: 01/12/21 19:54 Dose: 800 mg Documented by: Levothyroxine Sodium (Levothyroxine Sodium 75 Mcg Tablet) 75 mcg PO DAILY@0600 [facility] Last Admin: 01/13/21 08:17 Dose: 75 mcg Documented by: Lisinopril (Lisinopril 5 Mg Tablet) 5 mg PO DAILY [facility]; Protocol Last Admin: 01/13/21 08:15 Dose: 5 mg Documented by: Lorazepam (Lorazepam 1 Mg Tablet) 1 mg PO Q4H PRN PRN Reason: anxiety Last Admin: 01/13/21 13:34 Dose: 1 mg Documented by: Magnesium Hydroxide (Milk Of Magnesia 30 Ml Oral.Susp) 30 ml PO DAILY PRN PRN Reason: Constipation Nicotine (Nicotine 21 Mg Patch.Td24) 21 mg TRANSDERMA DAILY [facility] Last Admin: 01/13/21 09:23 Dose: 21 mg Documented by: Omeprazole (Omeprazole 20 Mg Capsule.) 20 mg PO DAILY@0630 [facility] Last Admin: 01/13/21 08:15 Dose: 20 mg Documented by: Prazosin HCl (Prazosin Hcl 1 Mg Capsule) 2 mg PO BEDTIME [facility]; Protocol Last Admin: 01/13/21 21:01 Dose: 2 mg Documented by: Risperidone (Risperidone 0.5 Mg Tablet) 0.5 mg PO Q4H PRN PRN Reason: Psychosis Last Admin: 01/13/21 13:34 Dose: 0.5 mg Documented by: Risperidone (Risperidone 1 Mg Tablet) 1 mg PO BID [facility] Last Admin: 01/13/21 21:01 Dose: 1 mg Documented by: Sertraline HCl (Sertraline Hcl 100 Mg Tablet) 100 mg PO DAILY [facility] Last Admin: 01/13/21 08:16 Dose: 100 mg Documented by: Trazodone HCl (Trazodone Hcl 50 Mg Tablet) 50 mg PO BEDTIME PRN PRN Reason: Insomnia Last Admin: 01/06/21 22:04 Dose: 50 mg Documented by: Allergies Allergies Allergy/AdvReac Type Severity Reaction Status Date / Time bee pollen [bee stings] Allergy Intermediate Rash Verified 12/04/20 19:52 gluten AdvReac Intermediate Diarrhea Verified 12/04/20 19:51 Assessment & Plan Assessment & Plan (1) PTSD (post-traumatic stress disorder): Status: Acute Code(s): F43.10 - Post-traumatic stress disorder, unspecified (2) Severe recurrent major depression w/psychotic features, mood-congruent: Status: Acute Code(s): F33.3 - Major depressive disorder, recurrent, severe with psychotic symptoms Assessment and Plan: Continue current plan of care. I spent __20____ minutes with the patient and/or on the patient floor today, greater than?50% of which was spent counseling/coordinating care. Patient educated on: therapeutic strategies Informed Consent: understands Reason for contiued inpatient stay Substantial Risk for: stable for discharge
[2021-01-13 23:03] LABS: Influenza A PCR NEGATIVE (Negative); Influenza B PCR NEGATIVE (Negative); Resp Syncy Virus RNA Qual PCR NEGATIVE (Negative); SARS COV2 PCR INHOUSE NEGATIVE (Negative)
[2021-01-14 06:00] VITALS: BP 105/64; PULSE 70; RESP 16; TEMP 36.4; O2SAT 97
[2021-01-14] MEDS: Docusate Sodium 100 MG CAPSULE PO (08:30)
[2021-01-14] MEDS: Sertraline HCL 100 MG TABLET PO (08:30)
[2021-01-14] MEDS: Ferrous Sulfate 324 MG TABLET.DR PO (08:30)
[2021-01-14 08:31] VITALS: BP 124/61; PULSE 72
[2021-01-14] MEDS: Levothyroxine Sodium 75 MCG TABLET PO (08:31)
[2021-01-14] MEDS: Folic Acid 1 MG TABLET PO (08:31)
[2021-01-14] MEDS: lisinopriL 5 MG TABLET PO (08:31)
[2021-01-14] MEDS: Omeprazole 20 MG CAPSULE.DR PO (08:31)
[2021-01-14] MEDS: risperiDONE 1 MG TABLET PO (08:31)
[2021-01-14] MEDS: Aspirin Enteric Coated 81 MG TABLET.DR PO (08:31)
--- NOTE | 2021-01-14 17:24 | P.DS_ITS ---
DS: Providers Provider Date of Service: 01/14/21 Date of admission: 01/02/21 17:22 Date of discharge: 01/14/21 Primary care physician: Unknown Physician Admitting clinician: Radha Osborne Attending physician on admission: Jalil Mcgregor Consults: 01/06/21 08:39 Consult to Hospitalist Stat Consulting Provider: Hospitalist Reason For Exam: Chest Pain 10/0301/08/21 21:59 Consult to Orthopedics Routine Consulting Provider: Dalia Major Reason for consultation: had xray, Min displaced fx along the dorsal base of the 3rd distal phalanx Attending physician on discharge: Jalil Mcgregor Discharging clinician: Radha Osborne DS: Diagnosis Discharge Diagnosis (1) PTSD (post-traumatic stress disorder): Status: Acute (2) Severe recurrent major depression w/psychotic features, mood-congruent: Status: Acute DS: Medications Discharge Medications Home Medications: Home Medications Medication Instructions Recorded Confirmed prazosin 2 mg capsule 1 cap PO BEDTIME 01/01/21 01/01/21 Previous Rx's Medication Instructions Recorded aspirin 81 mg tablet,delayed 81 mg PO DAILY #30 tab 01/13/21 release atorvastatin 40 mg tablet 40 mg PO BEDTIME #30 tab 01/13/21 cyanocobalamin (vitamin B-12) 1,000 mcg IM Q30D #1 ml 01/13/21 1,000 mcg/mL injection solution docusate sodium 100 mg capsule 100 mg PO BID #60 cap 01/13/21 ferrous sulfate 324 mg (65 mg 324 mg PO DAILY #30 tab 01/13/21 iron) tablet,delayed release folic acid 1 mg tablet 1 mg PO DAILY #30 tab 01/13/21 levothyroxine 75 mcg tablet 75 mcg PO DAILY@0600 #30 tab 01/13/21 lisinopril 5 mg tablet 5 mg PO DAILY #30 tab 01/13/21 omeprazole 20 mg capsule,delayed 20 mg PO DAILY@0630 #30 cap 01/13/21 release prazosin 1 mg capsule 2 mg PO BEDTIME #60 cap 01/13/21 risperidone 1 mg tablet 1 mg PO BID #60 tab 01/13/21 sertraline 100 mg tablet 1 tab PO DAILY #30 tab 01/13/21 trazodone 50 mg tablet 50 mg PO BEDTIME PRN #30 tab 01/13/21 Mental Status Exam Mental Status Exam Patient Appearance: Appropriate Patient Orientation: Person, Place, Time and Situation Level of Consciousness: Awake and Alert Patient Behavior: Talkative Mood Description: Apprehensive Affect Description: Flat and Apprehensive Patient Cognition Impaired: No Ability to Follow Directions: Good Speech Pattern: Spontaneous Speech Memory Description: Intact Hallucinations: None Thought Process: Rumination Thought Content: positive for [place], positive for [place] and positive for Perseveration Depressive Symptoms: Increased Anxiety Judgement: Good Data Data Completed and Pending Completed studies during hospitalization [Text1]: 01/13/21 22:10 Coronavirus (PCR) NEGATIVE Influenza Type A (PCR) NEGATIVE Influenza Type B (PCR) NEGATIVE RSV RNA Qual (PCR) NEGATIVE Imaging Diagnostic Imaging Impressions Chest X-Ray 01/01/21 21:13 IMPRESSION: 1. No acute abnormality. 2.Status post median sternotomy. 3. Enlargement of pulmonary arteries suggestive of pulmonary arterial hypertension. Toe X-Ray 01/08/21 13:54 IMPRESSION: Minimally displaced fracture along the dorsal base of the 3rd distal phalanx. DS: Summary Hospital Course Hospital Course: Admission to adult psychiatry to address symptoms of severe recurrent major depression with psychosis and PTSD. Care plan, medication regime and out patient plan of care prior to admission were reviewed. Education was provided regarding management of symptoms, medications and side effects. Nursing and social service worked extensively with patient on collateral contacts, care planning, education regarding management of symptoms, medications and discharge planning. Risperdal and Sertraline were initiated. Prazosin and Trazodone were titrated and Citalopram was dicontinued. Time spent discussing smoking cessation with patient: 3 to 10 minutes Status at Discharge Cognitive/behavioral status at discharge: non-psychotic, non-suicidal Functional status at discharge: independent ambulation Overall status at discharge: patient is back to baseline Time Spent with Patient Time attestation: Total time spent providing and/or coordinating discharge services: 35 Time spent: Greater than 30 minutes Discharge Plan Discharge Anticipated Discharge Date/Time: 01/14/21 12:42 Patient Disposition: Xfer SNF Discharge Diagnosis: PTSD Major Depression, recurrent, severe with psychotic features Referrals: [facility] [Other] - 1 Week (Referral outpatient therapy, psychiatry appointments placed. ) Doris Noonan NP [Nurse Practitioner] - 01/19/21 9:00 am (in office) Discharge Medications: New atorvastatin 40 mg Tablet 40 mg PO BEDTIME Qty: 30 RF: 0 trazodone 50 mg Tablet 50 mg PO BEDTIME PRN (Reason: Insomnia) Qty: 30 RF: 0 prazosin 1 mg Capsule 2 mg PO BEDTIME Qty: 60 RF: 0 aspirin 81 mg Tablet,Delayed Release (Dr/Ec) 81 mg PO DAILY Qty: 30 RF: 0 levothyroxine 75 mcg Tablet 75 mcg PO DAILY@0600 Qty: 30 RF: 0 cyanocobalamin (vitamin B-12) 1,000 mcg/mL Solution 1,000 mcg IM Q30D Qty: 1 RF: 0 docusate sodium 100 mg Capsule 100 mg PO BID Qty: 60 RF: 0 omeprazole 20 mg Capsule,Delayed Release(Dr/Ec) 20 mg PO DAILY@0630 Qty: 30 RF: 0 folic acid 1 mg Tablet 1 mg PO DAILY Qty: 30 RF: 0 lisinopril 5 mg Tablet 5 mg PO DAILY Qty: 30 RF: 0 risperidone 1 mg Tablet 1 mg PO BID Qty: 60 RF: 0 ferrous sulfate 324 mg (65 mg iron) Tablet,Delayed Release (Dr/Ec) 324 mg PO DAILY Qty: 30 RF: 0 Continued prazosin 2 mg capsule 1 cap PO BEDTIME RF: 0 sertraline 100 mg tablet 1 tab PO DAILY Qty: 30 RF: 0 Discontinued acetaminophen 325 mg tablet 2 mg PO TID PRN (Reason: Pain) RF: 0 citalopram 10 mg tablet 1 tab PO DAILY RF: 0 hydroxyzine pamoate 50 mg capsule 1 cap PO TID PRN (Reason: Anxiety) RF: 0 Discharge Orders: Discharge Order (Routine); Ordered 01/14/21 Ordered By: Radha Osborne Diet: advance to usual diet Activity on Discharge: As tolerated Stand Alone Forms: Patient Portal Discharge page, Community Support Care Plan Goals: Mood Stabilization Health Concerns: Depression PTSD Psychosis Plan of Treatment: Attend appointments as scheduled Take medications as directed Assessment: non-psychotic, non-suicidal Discharge Date/Time: 01/14/21 14:20
== END 2021-01-14 14:20 | disposition skilled nursing facility (03) | DRG 885 ==
LOC: HO.ED 01-02 00:42 → HO.PM5 01-02 17:54
PROVIDERS: Family Medicine; Admitting Provider Clinical Nurse Specialist Psychiatric/Mental Health, Adult; Emergency Provider Emergency Medicine; Visit Provider Clinical Nurse Specialist Psychiatric/Mental Health, Adult
DX: F33.3 Major depressive disorder, recurrent, severe with psychotic symptoms (principal); R45.851 Suicidal ideations; F43.10 Post-traumatic stress disorder, unspecified; E03.9 Hypothyroidism, unspecified; Z23 Encounter for immunization; F17.210 Nicotine dependence, cigarettes, uncomplicated; F10.20 Alcohol dependence, uncomplicated; I25.10 Atherosclerotic heart disease of native coronary artery without angina pectoris; I25.2 Old myocardial infarction; D50.9 Iron deficiency anemia, unspecified; D51.9 Vitamin B12 deficiency anemia, unspecified; I95.1 Orthostatic hypotension; K21.9 Gastro-esophageal reflux disease without esophagitis; Z20.822 Contact with and (suspected) exposure to COVID-19; Z71.6 Tobacco abuse counseling; Z79.82 Long term (current) use of aspirin; Z79.890 Hormone replacement therapy; Z79.899 Other long term (current) drug therapy
CPT/HCPCS: 0241U; 36415; 71045; 73660; 80048; 80061; 80307; 81001; 82607; 82746; 83036; 83540; 83735; 84439; 84443; 84484; 85025; 87635; 90686; 93005; 99285

== ENCOUNTER 2021-11-25 15:34 | Inpatient (IN) | payer MEDICARE, MEDICAID, SELFPAY ==
[2021-11-25] VITALS (7 sets, daily range): BP systolic 135–147; BP diastolic 56–81; PULSE 59–86; RESP 16; TEMP 36.7–37.4; O2SAT 96–99; BMI 31.5
--- NOTE | ~2021-11-25 | CT_ITS ---
EXAMINATION: CT HEAD WITHOUT CONTRAST CT CERVICAL SPINE WITHOUT CONTRAST CLINICAL INFORMATION: Fall. Injury. Head injury. Trauma to the neck. COMPARISON: None. TECHNIQUE: Imaging was performed from the skull base to vertex without intravenous administration of contrast. In addition, helical noncontrast CT imaging was acquired through the cervical spine and source images were reviewed along with axial reconstructions and sagittal and coronal MPRs. [This CT examination was performed using dose optimization techniques as appropriate, variously including the following: *Automated exposure control *Adjustment of mA and/or kV according to patient size (this includes techniques or standardized protocols for targeted exams where dose is matched to indication/reason for exam; i.e. extremities or head) *Use of iterative reconstruction technique] DLP: 1751 mGy-cm FINDINGS: HEAD: No intracranial mass, hemorrhage, or midline shift is visualized. The ventricles and sulci are proportional. No extra-axial collections are identified. The paranasal sinuses and mastoid air cells are well aerated. CERVICAL SPINE: There is no evidence of acute cervical spine fracture. Vertebral bodies remain normal in height. Cervical vertebrae have normal alignment. There is multilevel degenerative spondylosis of the cervical spine with disc height narrowing and endplate spurs and facet joint arthrosis No pre- or paravertebral soft tissue abnormality is identified. Limited assessment of the lung apices is unremarkable. CT/CT cervical spine wo IV con IMPRESSION: 1. No acute intracranial pathology. 2. No CT evidence of acute cervical spine fracture or traumatic subluxation
--- NOTE | ~2021-11-25 | XR_ITS ---
EXAMINATION: XR CHEST CLINICAL INFORMATION: Chest pain COMPARISON: Chest x-ray on 01/01/2021 TECHNIQUE: Frontal view of the chest was obtained. FINDINGS: Cardiomediastinal silhouette is normal. The left pulmonary artery is significantly enlarged, though stable. No areas of consolidation. No pleural effusions. There has been a prior median sternotomy and the left shoulder hemiarthroplasty. There is a cardiac event device recorder overlying the left chest. XR/XR chest 1V IMPRESSION: No acute disease.
--- NOTE | ~2021-11-25 | CT_ITS ---
EXAMINATION: CT HEAD WITHOUT CONTRAST CT CERVICAL SPINE WITHOUT CONTRAST CLINICAL INFORMATION: Fall. Injury. Head injury. Trauma to the neck. COMPARISON: None. TECHNIQUE: Imaging was performed from the skull base to vertex without intravenous administration of contrast. In addition, helical noncontrast CT imaging was acquired through the cervical spine and source images were reviewed along with axial reconstructions and sagittal and coronal MPRs. [This CT examination was performed using dose optimization techniques as appropriate, variously including the following: *Automated exposure control *Adjustment of mA and/or kV according to patient size (this includes techniques or standardized protocols for targeted exams where dose is matched to indication/reason for exam; i.e. extremities or head) *Use of iterative reconstruction technique] DLP: 1751 mGy-cm FINDINGS: HEAD: No intracranial mass, hemorrhage, or midline shift is visualized. The ventricles and sulci are proportional. No extra-axial collections are identified. The paranasal sinuses and mastoid air cells are well aerated. CERVICAL SPINE: There is no evidence of acute cervical spine fracture. Vertebral bodies remain normal in height. Cervical vertebrae have normal alignment. There is multilevel degenerative spondylosis of the cervical spine with disc height narrowing and endplate spurs and facet joint arthrosis No pre- or paravertebral soft tissue abnormality is identified. Limited assessment of the lung apices is unremarkable. CT/CT head/brain wo IV con IMPRESSION: 1. No acute intracranial pathology. 2. No CT evidence of acute cervical spine fracture or traumatic subluxation
--- NOTE | 2021-11-25 16:11 | ECG_ITS ---
Test Reason : MED CLEARANCE Blood Pressure : / mmHG Vent. Rate : 071 BPM Atrial Rate : 071 BPM P-R Int : 164 ms QRS Dur : 136 ms QT Int : 466 ms P-R-T Axes : 025 099 065 degrees QTc Int : 506 ms Normal sinus rhythm Right bundle branch block Abnormal ECG When compared with ECG of 06-JAN-2021 09:11, No significant change was found Referred By: Denisa Luque Electronically Signed By:ELIA ACUÑA
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
[2021-11-25 16:34] LABS: Amphetamine Screen Urine Not Detected (Not Detect); Barbiturates, Urine Not Detected (Not Detect); Benzodiazepines Screen Urine Not Detected (Not Detect); Cannabinoid Screen Urine Not Detected (Not Detect); Cocaine Screen Urine Not Detected (Not Detect); Fentanyl, urine Not Detected (Not Detect); Opiate Screen Urine Not Detected (Not Detect); Phencyclidine Screen Urine Not Detected (Not Detect)
[2021-11-25 16:40] LABS: COVID-19 Test Negative (Negative)
[2021-11-25] MEDS: Meclizine HCl 25 MG TABLET PO (17:52)
[2021-11-25] MEDS: 0.9 % Sodium Chloride 1,000 ML 999 ML IV (17:54)
[2021-11-25 17:58] LABS: MANUAL DIFF FLAG NO
[2021-11-25 18:02] LABS: Basophils Absolute Auto 0.1 X10*3/uL (0.0-0.2); Basophils Percent Auto 0.8 % (0-2); Eosinophils Absolute Auto 0.1 X10*3/uL (0.0-0.4); Eosinophils Percent Auto 1.8 % (0-4); Hematocrit 36.5 % (42.0-52.0); Hemoglobin 12.9 g/dl (14.0-18.0); Imm Gran Abs Auto 0.03 X10*3/uL (0.00-0.03); Imm Gran Pct Auto 0.4 % (0.0-0.4); Lymphocytes Absolute Auto 1.7 X10*3/uL (1.2-4.9); Lymphocytes Percent Auto 23.2 % (20-40); Mean Corpuscular HGB Conc 35.3 g/dl (31.0-36.0); Mean Corpuscular Hemoglobin 32.7 pg (27.0-33.0); Mean Corpuscular Volume 92.4 fL (80.0-98.0); Mean Platelet Volume 9.5 fL (9.4-12.4); Monocytes Percent Auto 14.2 % (2-11); Neutrophils Absolute Auto 4.3 x10*3/uL (2.0-8.3); Neutrophils Percent Auto 59.6 % (45-73); Platelet Count 169 X10*3/uL (160-400); Red Blood Count 3.95 X10*6/uL (4.60-5.80); Red Cell Distribution Width 13.4 % (11.0-16.0); White Blood Count 7.2 X10*3/uL (4.8-10.8)
[2021-11-25 18:16] LABS: Alanine Aminotransferase 17 U/L (0-40); Albumin Level 3.9 g/dL (3.5-5.0); Alkaline Phosphatase 64 U/L (39-117); Anion Gap 15 (12-20); Aspartate Amino Transferase 27 U/L (5-37); Bilirubin Direct 0.2 mg/dL (0.0-0.5); Bilirubin Total 0.5 mg/dL (0.0-1.0); Blood Urea Nitrogen 14 mg/dL (9-16); Calcium 8.6 mg/dL (8.4-10.2); Carbon Dioxide 23 mmol/L (22-29); Chloride 104 mmol/L (96-108); Creatinine Clr Calc Pharmacy 128.3; Estimated Glomerular Filt Rate > 60; Ethanol < 10 mg/dL; Glucose Random 111 mg/dL (60-115); Lipase 45 U/L (8-78); Magnesium 2.1 mg/dL (1.6-2.6); Potassium 4.2 mmol/L (3.3-5.1); Sodium 138 mmol/L (135-145); Total Protein 6.8 g/dL (6.5-8.0)
[2021-11-25 18:19] LABS: Troponin-I High Sensitivity 6.6 ng/L (<3.5-35.0)
[2021-11-25 18:35] LABS: Appearance Urine Clear; Color Urine Straw; Glucose Urine UA Negative (Negative); Leukocyte Esterase Urine Negative (Negative); Nitrite Urine Negative (Negative); PH 5.5 (5.0-9.0); Specific Gravity - Urine <= 1.005 (1.005-1.025); Urine Blood Negative (Negative); Urine Ketones Negative (Negative); Urine Protein Negative (Neg-Trace)
--- NOTE | 2021-11-25 18:39 | PC.NURSE ---
this greeting card writer assumed care of this pt at 1745. pt brought over from the POD to the main ed for treatment with iv fluids. 20 gauge iv placed in rac. po meclizine given. pt reports si with plan to walk into traffic. denies hi. 1:1 sitter with pt. nicholes
[2021-11-25 21:42] LABS: Troponin-I High Sensitivity 4.8 ng/L (<3.5-35.0)
--- NOTE | 2021-11-25 22:33 | PC.NURSE ---
One liter of normal saline was infusing very slowly. This RN connected the fluids to a pressure bag to promote faster infusion.
--- NOTE | 2021-11-26 01:10 | MHC.CARE ---
Eloina completed at this time
--- NOTE | 2021-11-26 01:45 | MHC.CARE ---
[facility] arrived to see pt
[2021-11-26 16:27] VITALS: BP 136/73; PULSE 61; RESP 18; TEMP 36.6; O2SAT 96
[2021-11-26 23:28] VITALS: BP 127/77; PULSE 65; RESP 16; TEMP 36.4; O2SAT 97
--- NOTE | 2021-11-27 07:13 | PC.NURSE ---
Patient slept though the night, no distress observed/reported, behavior non concerning, med rec completed/pending provider's approval, disposition per N is section 12 inpatient bed search, VSS, will continue to monitor.
[2021-11-27 10:18] VITALS: BP 119/65; PULSE 57; RESP 15; O2SAT 96
[2021-11-27] MEDS: Aspirin Enteric Coated 81 MG TABLET.DR PO (10:18)
[2021-11-27] MEDS: Omeprazole 20 MG CAPSULE.DR PO (10:19)
[2021-11-27] MEDS: Folic Acid 1 MG TABLET PO (10:19)
[2021-11-27] MEDS: risperiDONE 1 MG TABLET PO ×2 (10:19→21:05)
[2021-11-27] MEDS: Prazosin HCL 1 MG CAPSULE PO (10:19)
[2021-11-27] MEDS: Docusate Sodium 100 MG CAPSULE PO ×2 (10:19→21:05)
[2021-11-27] MEDS: Loratadine 10 MG TABLET PO (10:19)
[2021-11-27] MEDS: lisinopriL 5 MG TABLET PO (10:19)
[2021-11-27] MEDS: Sertraline HCL 100 MG TABLET PO (10:19)
[2021-11-27] MEDS: Atorvastatin Calcium 40 MG TABLET PO (10:19)
[2021-11-27] MEDS: Ferrous Sulfate 324 MG TABLET.DR PO (10:20)
[2021-11-27] MEDS: Levothyroxine Sodium 88 MCG TABLET PO (10:20)
--- NOTE | 2021-11-27 10:27 | PC.NURSE ---
Addendum entered by Walter Myers 11/27/21 14:10: Dr. Godoy notifed that patient did not take Florinef at 1106 Addendum entered by Walter Myers 11/27/21 11:06: Patient refused Florinef. Stated he has never heard of that medication . Original Note: Florinef not in pyxis. Sheron from pharmacy notified
--- NOTE | 2021-11-27 14:00 | PC.NURSE ---
Patient pulled help string in bathroom. States that he felt lightheaded and dizzy. Vitals taken BP noted to be low. Dr. Godoy to order Florinef which patient refused this AM.
--- NOTE | 2021-11-27 14:09 | ECG_ITS ---
Test Reason : near syncope Blood Pressure : / mmHG Vent. Rate : 079 BPM Atrial Rate : 079 BPM P-R Int : 148 ms QRS Dur : 128 ms QT Int : 428 ms P-R-T Axes : 047 127 065 degrees QTc Int : 490 ms Normal sinus rhythm Right bundle branch block , plus right ventricular hypertrophy Abnormal ECG When compared with ECG of 25-NOV-2021 16:51, No significant change was found Referred By: Marley Godoy Electronically Signed By:ELIA ACUÑA
[2021-11-27] MEDS: Fludrocortisone Acetate 0.1 MG TABLET PO (14:13)
[2021-11-27 14:50] LABS: MANUAL DIFF FLAG NO
[2021-11-27 14:53] LABS: Basophils Percent Auto 0.8 % (0-2); Eosinophils Absolute Auto 0.1 X10*3/uL (0.0-0.4); Eosinophils Percent Auto 2.4 % (0-4); Hematocrit 39.8 % (42.0-52.0); Hemoglobin 13.8 g/dl (14.0-18.0); Imm Gran Abs Auto 0.02 X10*3/uL (0.00-0.03); Imm Gran Pct Auto 0.4 % (0.0-0.4); Lymphocytes Absolute Auto 1.4 X10*3/uL (1.2-4.9); Lymphocytes Percent Auto 28.9 % (20-40); Mean Corpuscular HGB Conc 34.7 g/dl (31.0-36.0); Mean Corpuscular Hemoglobin 31.9 pg (27.0-33.0); Mean Corpuscular Volume 91.9 fL (80.0-98.0); Mean Platelet Volume 9.9 fL (9.4-12.4); Monocytes Absolute Auto 0.5 X10*3/uL (0.1-1.2); Monocytes Percent Auto 10.7 % (2-11); Neutrophils Absolute Auto 2.8 x10*3/uL (2.0-8.3); Neutrophils Percent Auto 56.8 % (45-73); Platelet Count 158 X10*3/uL (160-400); Red Blood Count 4.33 X10*6/uL (4.60-5.80); Red Cell Distribution Width 13.2 % (11.0-16.0)
[2021-11-27 15:09] LABS: Anion Gap 15 (12-20); Blood Urea Nitrogen 18 mg/dL (9-16); Calcium 8.8 mg/dL (8.4-10.2); Carbon Dioxide 24 mmol/L (22-29); Chloride 104 mmol/L (96-108); Estimated Glomerular Filt Rate > 60; Glucose Random 109 mg/dL (60-115); Potassium 3.8 mmol/L (3.3-5.1); Sodium 139 mmol/L (135-145)
[2021-11-27 15:17] VITALS: BP 104/60; PULSE 71; TEMP 36.4; O2SAT 98
[2021-11-27 20:08] VITALS: BP 102/54; PULSE 66; RESP 16; TEMP 36.6; O2SAT 96
[2021-11-28 01:03] VITALS: BP 103/56; PULSE 64; RESP 16; TEMP 36.7; O2SAT 96
[2021-11-28] MEDS: Omeprazole 20 MG CAPSULE.DR PO (06:17)
[2021-11-28] MEDS: Levothyroxine Sodium 88 MCG TABLET PO (06:17)
--- NOTE | 2021-11-28 06:24 | PC.NURSE ---
Patient slept though the night, no distress observed/reported, behavior non concerning, medication complaint, disposition per [facility] is section 12 inpatient bed search, no update on bed search, VSS, will continue to monitor.
[2021-11-28] MEDS: lisinopriL 5 MG TABLET PO (09:40)
[2021-11-28] MEDS: Atorvastatin Calcium 40 MG TABLET PO (09:40)
[2021-11-28] MEDS: Folic Acid 1 MG TABLET PO (09:40)
[2021-11-28] MEDS: Docusate Sodium 100 MG CAPSULE PO ×2 (09:40→20:27)
[2021-11-28] MEDS: risperiDONE 1 MG TABLET PO ×2 (09:40→20:27)
[2021-11-28] MEDS: Prazosin HCL 1 MG CAPSULE PO (09:40)
[2021-11-28] MEDS: Loratadine 10 MG TABLET PO (09:40)
[2021-11-28] MEDS: Sertraline HCL 100 MG TABLET PO (09:40)
[2021-11-28] MEDS: Aspirin Enteric Coated 81 MG TABLET.DR PO (09:40)
[2021-11-28] MEDS: Fludrocortisone Acetate 0.1 MG TABLET PO (09:47)
[2021-11-28 15:45] VITALS: BP 117/58; PULSE 67; RESP 15; TEMP 36.6; O2SAT 97
[2021-11-28 20:24] VITALS: BP 106/54; PULSE 67; RESP 18; TEMP 36.3; O2SAT 96
[2021-11-29 00:55] VITALS: BP 107/59; PULSE 86; RESP 16; TEMP 36.1; O2SAT 97
[2021-11-29] MEDS: Omeprazole 20 MG CAPSULE.DR PO (05:52)
[2021-11-29] MEDS: Levothyroxine Sodium 88 MCG TABLET PO (05:52)
--- NOTE | 2021-11-29 07:55 | PC.NURSE ---
patient appears to remain asleep at present respirations are even and unlabored patient appears in no distress
[2021-11-29] MEDS: Atorvastatin Calcium 40 MG TABLET PO (08:38)
[2021-11-29] MEDS: Sertraline HCL 100 MG TABLET PO (08:38)
[2021-11-29] MEDS: Loratadine 10 MG TABLET PO (08:38)
[2021-11-29] MEDS: risperiDONE 1 MG TABLET PO ×2 (08:38→20:36)
[2021-11-29] MEDS: Docusate Sodium 100 MG CAPSULE PO ×2 (08:38→20:36)
[2021-11-29] MEDS: lisinopriL 5 MG TABLET PO (08:38)
[2021-11-29] MEDS: Folic Acid 1 MG TABLET PO (08:39)
[2021-11-29] MEDS: Aspirin Enteric Coated 81 MG TABLET.DR PO (08:39)
[2021-11-29] MEDS: Ferrous Sulfate 324 MG TABLET.DR PO (08:39)
[2021-11-29] MEDS: Prazosin HCL 1 MG CAPSULE PO ×2 (08:39→20:36)
[2021-11-29] MEDS: Fludrocortisone Acetate 0.1 MG TABLET PO (09:28)
[2021-11-29 10:53] LABS: COVID-19 Test Negative (Negative)
[2021-11-29 10:56] VITALS: BP 112/69; PULSE 86; RESP 18; TEMP 36.6; O2SAT 98
[2021-11-29 16:15] VITALS: BP 119/60; PULSE 80; RESP 16; TEMP 36.2; O2SAT 98
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
[2021-11-29 18:15] VITALS: BP 107/65; PULSE 66
[2021-11-29 18:16] VITALS: BP 104/57; PULSE 85
[2021-11-29 19:30] VITALS: BP 110/57; PULSE 84; RESP 16; TEMP 36.6; O2SAT 97
[2021-11-30 06:00] VITALS: BP 100/56; PULSE 58; RESP 18; TEMP 36.1; O2SAT 96
[2021-11-30] MEDS: Atorvastatin Calcium 40 MG TABLET PO (08:28)
[2021-11-30] MEDS: Fludrocortisone Acetate 0.1 MG TABLET PO (08:28)
[2021-11-30] MEDS: risperiDONE 1 MG TABLET PO ×2 (08:28→21:30)
[2021-11-30] MEDS: Sertraline HCL 100 MG TABLET PO (08:28)
[2021-11-30] MEDS: Aspirin Enteric Coated 81 MG TABLET.DR PO (08:28)
[2021-11-30] MEDS: Levothyroxine Sodium 88 MCG TABLET PO (08:28)
[2021-11-30] MEDS: lisinopriL 5 MG TABLET PO (08:28)
[2021-11-30] MEDS: Folic Acid 1 MG TABLET PO (08:28)
[2021-11-30] MEDS: Docusate Sodium 100 MG CAPSULE PO ×2 (08:28→21:29)
[2021-11-30] MEDS: Prazosin HCL 1 MG CAPSULE PO ×2 (08:29→21:29)
[2021-11-30] MEDS: Omeprazole 20 MG CAPSULE.DR PO (08:29)
[2021-11-30] MEDS: Loratadine 10 MG TABLET PO (08:29)
[2021-11-30 09:19] LABS: Cholesterol 106 mg/dL; HDL Cholesterol 31 mg/dL; LDL Cholesterol Calculated 60 mg/dl; Triglycerides 79 mg/dL
[2021-11-30 09:25] LABS: Estimated Average Glucose 105 mg/dL; Hemoglobin A1c % 5.3 %
[2021-11-30 09:41] LABS: Free T4 (Free Thyroxine) 1.01 ng/dL (0.71-1.85); Thyroid Stimulating Hormone 1.37 uIU/mL (0.32-4.0)
[2021-11-30 09:58] LABS: Folate 11.5 ng/mL (> or = 4.0); Vitamin B12 504 pg/mL (200-900)
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
--- NOTE | 2021-11-30 15:32 | MHC.CLN ---
NUTRITION PATIENT REPORTED TO THIS MEDICAL INSURANCE CLAIMS PROCESSOR THAT HE HAS LOST 25#. UNABLE TO GIVE TIMEFRAME OF WEIGHT LOSS. CURRENTLY EATING OK. WOULD LIKE ENSURE SUPPLEMENT. ORDER FOR ENSURE TID IN PLACE. PROVIDES 1050 KCALS, 60 G PROTEIN.
[2021-11-30 21:29] VITALS: BP 112/68; PULSE 82; RESP 18; TEMP 36.4; O2SAT 97
[2021-11-30] MEDS: traZODone HCL 50 MG TABLET PO (21:30)
[2021-11-30] MEDS: traZODone HCL 100 MG TABLET PO (21:30)
[2021-12-01] VITALS (7 sets, daily range): BP systolic 107–135; BP diastolic 53–77; PULSE 78–99; RESP 12–17; TEMP 36.6; O2SAT 96–98
[2021-12-01] MEDS: Fludrocortisone Acetate 0.1 MG TABLET PO (08:25)
[2021-12-01] MEDS: Docusate Sodium 100 MG CAPSULE PO ×2 (08:25→20:05)
[2021-12-01] MEDS: Folic Acid 1 MG TABLET PO (08:25)
[2021-12-01] MEDS: Prazosin HCL 1 MG CAPSULE PO ×2 (08:26→20:04)
[2021-12-01] MEDS: Sertraline HCL 100 MG TABLET PO (08:26)
[2021-12-01] MEDS: Aspirin Enteric Coated 81 MG TABLET.DR PO (08:26)
[2021-12-01] MEDS: Levothyroxine Sodium 88 MCG TABLET PO (08:26)
[2021-12-01] MEDS: risperiDONE 1 MG TABLET PO ×2 (08:26→20:04)
[2021-12-01] MEDS: Ferrous Sulfate 324 MG TABLET.DR PO (08:27)
[2021-12-01] MEDS: Atorvastatin Calcium 40 MG TABLET PO (08:27)
[2021-12-01] MEDS: Loratadine 10 MG TABLET PO (08:27)
[2021-12-01] MEDS: lisinopriL 5 MG TABLET PO (08:27)
[2021-12-01] MEDS: Omeprazole 20 MG CAPSULE.DR PO (08:28)
--- NOTE | 2021-12-01 14:02 | HO.PSYCHPN ---
Subjective Subjective Date of Service: 12/01/21 Reason For Visit: Depression,SI Interim History: [place]. mood is depressed. endorses CAH to kill himself. [facility]. expresses interest in custodial in [place] in that event. c/o insomnia, agrees to increase trazodone to 200 mg QHS. per staff, anxious and depressed. poor sleep. CAH to harm self. eves pleasant, cooperative. [facility]. Mental Status Exam Mental Status Exam Narrative: Appearance: Hard of hearing, casually groomed, fair hygiene in NAD Behavior:cooperative psychomotor:no agitation or retardation noted Speech: clear, normal rate/rhythm/volume, spontaneous Thought process:linear Thought content: no psychosis, feeling depressed and hopeless Mood: depressed Affect: brightens at times, flexible, normo-intense, non-labile SI: + HI: none expressed VH/AH: +CAH to kill himself Delusions:none expressed Insight/judgment:poor x 2. Memory/cog: alert, oriented x 3. not formally testing. appears very concrete and limited in his thinking- hx of developmental delay. Diagnostics Vital Signs (24Hr): Vital Signs - 24 hr 11/30/21 21:29 12/01/21 08:24 Temperature 97.6 F 97.8 F Pulse Rate 82 78 Respiratory Rate 18 17 Blood Pressure 112/68 112/60 Pulse Oximetry 97 97 Oxygen Delivery Method Room Air Room Air BMI result Body Mass Index 31.5 Labs Results: 11/27/21 14:45 11/27/21 14:45 Labs: Laboratory Results - last 48 hr 11/30/21 11/30/21 11/30/21 08:13 08:13 08:13 Estimat Average Glucose 105 Hemoglobin A1c % 5.3 Magnesium 2.0 Triglycerides 79 Cholesterol 106 LDL Cholesterol, Calc 60 HDL Cholesterol 31 Vitamin B12 504 Folate 11.5 TSH 1.37 Free T4 1.01 Imaging Radiology Impressions: ITS Impressions Chest X-Ray 11/25/21 17:13 IMPRESSION: No acute disease. Cervical Spine CT 11/25/21 18:39 IMPRESSION: 1. No acute intracranial pathology. 2. No CT evidence of acute cervical spine fracture or traumatic subluxation Head CT 11/25/21 18:39 IMPRESSION: 1. No acute intracranial pathology. 2. No CT evidence of acute cervical spine fracture or traumatic subluxation Medications Medications Current Medications Acetaminophen (Acetaminophen 325 Mg Tablet) 650 mg PO Q6H PRN PRN Reason: Headache/Pain Mild Scale (1-3) Al Hydroxide/Mg Hydroxide (Magnesium Hydrox/Alum Hydrox 30 Ml Oral.Susp) 30 ml PO Q6H PRN PRN Reason: Heartburn/Nausea Aspirin (Aspirin Enteric Coated 81 Mg Tablet.) 81 mg PO DAILY [facility] Last Admin: 12/01/21 08:26 Dose: 81 mg Atorvastatin Calcium (Atorvastatin Calcium 40 Mg Tablet) 40 mg PO DAILY [facility] Last Admin: 12/01/21 08:27 Dose: 40 mg Docusate Sodium (Docusate Sodium 100 Mg Capsule) 100 mg PO BID [facility] Last Admin: 12/01/21 08:25 Dose: 100 mg Ferrous Sulfate (Ferrous Sulfate 324 Mg Tablet.) 324 mg PO Q48H [facility] Last Admin: 12/01/21 08:27 Dose: 324 mg Fludrocortisone Acetate (Fludrocortisone Acetate 0.1 Mg Tablet) 0.1 mg PO DAILY [facility] Last Admin: 12/01/21 08:25 Dose: 0.1 mg Folic Acid (Folic Acid 1 Mg Tablet) 1 mg PO DAILY [facility] Last Admin: 12/01/21 08:25 Dose: 1 mg Hydroxyzine HCl (Hydroxyzine Hcl 25 Mg Tablet) 25 mg PO Q6H PRN PRN Reason: Anxiety Levothyroxine Sodium (Levothyroxine Sodium 88 Mcg Tablet) 88 mcg PO DAILY@0600 [facility] Last Admin: 12/01/21 08:26 Dose: 88 mcg Lisinopril (Lisinopril 5 Mg Tablet) 5 mg PO DAILY [facility]; Protocol Last Admin: 12/01/21 08:27 Dose: 5 mg Loratadine (Loratadine 10 Mg Tablet) 10 mg PO DAILY [facility] Last Admin: 12/01/21 08:27 Dose: 10 mg Magnesium Hydroxide (Milk Of Magnesia 30 Ml Oral.Susp) 30 ml PO DAILY PRN PRN Reason: Constipation Omeprazole (Omeprazole 20 Mg Capsule.) 20 mg PO DAILY@0630 [facility] Last Admin: 12/01/21 08:28 Dose: 20 mg Prazosin HCl (Prazosin Hcl 1 Mg Capsule) 1 mg PO BID [facility]; Protocol Last Admin: 12/01/21 08:26 Dose: 1 mg Risperidone (Risperidone 1 Mg Tablet) 1 mg PO BID [facility] Last Admin: 12/01/21 08:26 Dose: 1 mg Sertraline HCl (Sertraline Hcl 100 Mg Tablet) 100 mg PO DAILY [facility] Last Admin: 12/01/21 08:26 Dose: 100 mg Trazodone HCl (Trazodone Hcl 100 Mg Tablet) 200 mg PO BEDTIME [facility] Allergies Allergies Allergy/AdvReac Type Severity Reaction Status Date / Time bee pollen [bee stings] Allergy Intermediate Rash Verified 12/04/20 19:52 gluten AdvReac Intermediate Diarrhea Verified 12/04/20 19:51 Assessment & Plan Assessment & Plan (1) Severe recurrent major depression w/psychotic features, mood-congruent: Status: Acute Code(s): F33.3 - Major depressive disorder, recurrent, severe with psychotic symptoms Plan Mr. Broderick is a 56 year-old male with hx of MDD with psychosis, homeless for unclear reasons. Utox negative. Pt reports feeling lonely, intermittent suicidal ideation. We discussed risks, benefits and alternative treatment options. He agrees to continue sertraline and risperidone. 11/30: continue current medications- sertraline and risperidone, increase trazodone to 100mg po qhs for sleep. 12/01: increase trazodone to 200 mg QHS. I spent __25____ minutes with the patient and/or on the patient floor today, greater than?50% of which was spent counseling/coordinating care. Reason for contiued inpatient stay Substantial Risk for: harm to self, inability to function and rapid decompensation
[2021-12-01] MEDS: Acetaminophen 325 MG TABLET 650 MG PO (20:05)
[2021-12-01] MEDS: traZODone HCL 100 MG TABLET 200 MG PO (20:05)
[2021-12-01] MEDS: Magnesium Hydrox/Alum Hydrox 30 ML ORAL.SUSP PO (20:07)
--- NOTE | 2021-12-01 20:27 | PC.NURSE ---
reporting chest discomfort-assisting RN with assignment and care of patient. PT is observed sitting quietly and calmly in day area. Color is good, no diaphoresis, no SOB or dyspnea. VS w/in normal limits. reported ''when I was at [facility] and when they couldn't figure out what was happening they gave me morphine and I slept really well''
--- NOTE | 2021-12-01 20:48 | ECG_ITS ---
Test Reason : chest pain Blood Pressure : / mmHG Vent. Rate : 072 BPM Atrial Rate : 072 BPM P-R Int : 166 ms QRS Dur : 130 ms QT Int : 446 ms P-R-T Axes : 013 105 065 degrees QTc Int : 488 ms Normal sinus rhythm Right bundle branch block Abnormal ECG When compared with ECG of 27-NOV-2021 14:08, No significant change was found Referred By: Jalil Mcgregor Electronically Signed By:ELIA ACUÑA
--- NOTE | 2021-12-01 21:04 | PC.NURSE ---
ekg ordered. billposting supervisor notified. VS re taken. see VS documentation. ortho's done. no changes noted. when approached for VS was asleep in bed. no acute distress. no diaphoresis, no reports of CP, color is good. current c/o ''numb l arm''
--- NOTE | 2021-12-01 21:20 | PM.EVENT ---
Event Note Date of Service: 12/01/21 Event Note: I was asked to review EKG on this pt who had complaints of left arm pain. he denies any chest pain, he is hemodynamically stable. I reviewed the EKG and compared it to previous. He does have significant ST-T wave changes in cluding T wave inversion and ST depressions but these were present on previous EKGs from earlier this month. I do recommend pt get Tropinin, if elevated, will see pt in formal consult , if normal, i do recommend pt be evaluated for cardiology if have not done so.
--- NOTE | 2021-12-01 21:21 | PC.NURSE ---
ekg complete. image sent to Dr. Mcgregor. Reviewed status and EKG with hospitalist Dr. zAevedo. Dr. Azevedo recommends troponin level to be drawn. No significant change from previous. recommends out patient cardiology.
[2021-12-01] MEDS: Simethicone 80 MG TAB.CHEW PO (22:12)
--- NOTE | 2021-12-01 22:23 | PC.NURSE ---
ekg done. providers notified. labs draw, results pending. c/o ''numbness left arm'' ''it's still the same. reported that ''I usually get a chest xray when this happens'' patient is fully oriented. no diaphoresis, no SOB, color is good. is taking in fluids and continues to c/o gas, flatus. is visible, calm.
[2021-12-01 22:29] LABS: Troponin-I High Sensitivity < 3.5 ng/L (<3.5-35.0)
[2021-12-02 00:29] VITALS: BP 111/58; PULSE 65; RESP 16; TEMP 36.6; O2SAT 97
--- NOTE | 2021-12-02 00:30 | PC.NURSE ---
PT woken for VS. on rising reviewed results of lab and that a consult for cardiology is ordered. reports seeing a still cleaner tube in the past. no c/o CP. no diaphoresis, color is good. fully oriented. continues with c/o ''numb hand a arm'' L side. requested to have a snack.
[2021-12-02 05:45] VITALS: BP 110/60; PULSE 60; RESP 14; O2SAT 97
[2021-12-02 07:00] VITALS: BMI 32.4
[2021-12-02] MEDS: lisinopriL 5 MG TABLET PO (09:52)
[2021-12-02] MEDS: risperiDONE 1 MG TABLET PO ×2 (09:52→22:05)
[2021-12-02] MEDS: Sertraline HCL 100 MG TABLET PO (09:52)
[2021-12-02] MEDS: Aspirin Enteric Coated 81 MG TABLET.DR PO (09:52)
[2021-12-02] MEDS: Docusate Sodium 100 MG CAPSULE PO ×2 (09:52→22:04)
[2021-12-02] MEDS: Omeprazole 20 MG CAPSULE.DR PO (09:52)
[2021-12-02] MEDS: Atorvastatin Calcium 40 MG TABLET PO (09:52)
[2021-12-02] MEDS: Fludrocortisone Acetate 0.1 MG TABLET PO (09:52)
[2021-12-02] MEDS: Prazosin HCL 1 MG CAPSULE PO ×2 (09:52→22:05)
[2021-12-02] MEDS: Loratadine 10 MG TABLET PO (09:52)
[2021-12-02] MEDS: Simethicone 80 MG TAB.CHEW PO ×4 (09:52→22:04)
[2021-12-02] MEDS: Levothyroxine Sodium 88 MCG TABLET PO (09:53)
[2021-12-02] MEDS: Folic Acid 1 MG TABLET PO (09:53)
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
[2021-12-02 22:00] VITALS: BP 111/73; PULSE 82; RESP 16; TEMP 36.6; O2SAT 98
[2021-12-02] MEDS: traZODone HCL 100 MG TABLET 200 MG PO (22:05)
[2021-12-03] MEDS: Omeprazole 20 MG CAPSULE.DR PO (07:22)
[2021-12-03] MEDS: Acetaminophen 325 MG TABLET 650 MG PO (07:22)
[2021-12-03] MEDS: Levothyroxine Sodium 88 MCG TABLET PO (07:22)
[2021-12-03 08:20] VITALS: BP 109/53; PULSE 73; RESP 16; TEMP 36.7; O2SAT 97
[2021-12-03] MEDS: Aspirin Enteric Coated 81 MG TABLET.DR PO (08:33)
[2021-12-03] MEDS: Docusate Sodium 100 MG CAPSULE PO (08:33)
[2021-12-03] MEDS: Folic Acid 1 MG TABLET PO (08:34)
[2021-12-03] MEDS: Simethicone 80 MG TAB.CHEW PO (08:34)
[2021-12-03] MEDS: risperiDONE 1 MG TABLET PO (08:34)
[2021-12-03] MEDS: Fludrocortisone Acetate 0.1 MG TABLET PO (08:34)
[2021-12-03] MEDS: Atorvastatin Calcium 40 MG TABLET PO (08:35)
[2021-12-03] MEDS: Ferrous Sulfate 324 MG TABLET.DR PO (08:35)
[2021-12-03] MEDS: Sertraline HCL 100 MG TABLET PO (08:35)
[2021-12-03] MEDS: Loratadine 10 MG TABLET PO (08:35)
--- NOTE | 2021-12-03 09:55 | PC.NURSE ---
Patient is alert and oriented. Patient is pleasant and cooperative. Patient is in agreement with discharge and discharge instructions. Patient denies SI/HI/AH/VH. Patient reports looking forward to going to a friends after discharge. Patient denies acute complaints.
== END 2021-12-03 10:31 | disposition home or self-care (01) | DRG 885 ==
LOC: HO.ED 11-26 11:19 → HO.PADLT16 11-29 15:50
PROVIDERS: Emergency Medicine; Physician Assistant; Psychiatry & Neurology Psychiatry; Registered Nurse; Admitting Provider Psychiatry & Neurology Psychiatry; Emergency Provider Student in an Organized Health Care Education/Training Program; Visit Provider Psychiatry & Neurology Psychiatry
DX: F33.1 Major depressive disorder, recurrent, moderate (principal); R45.851 Suicidal ideations; E03.9 Hypothyroidism, unspecified; Z59.02 Unsheltered homelessness; Z87.74 Personal history of (corrected) congenital malformations of heart and circulatory system; F17.210 Nicotine dependence, cigarettes, uncomplicated; R07.9 Chest pain, unspecified; Z20.822 Contact with and (suspected) exposure to COVID-19; Z71.6 Tobacco abuse counseling; Z95.4 Presence of other heart-valve replacement; Z91.030 Bee allergy status; Z79.82 Long term (current) use of aspirin; Z79.890 Hormone replacement therapy; Z79.899 Other long term (current) drug therapy
CPT/HCPCS: 36415; 70450; 71045; 72125; 80048; 80061; 80076; 80307; 81003; 82077; 82607; 82746; 83036; 83690; 83735; 84439; 84443; 84484; 85025; 87635; 93005; 99285

== ENCOUNTER 2021-12-08 17:19 | Emergency (ER) | payer MEDICARE, MEDICAID, SELFPAY ==
[2021-12-08 17:29] VITALS: BP 120/90; BP 123/80; PULSE 112; PULSE 99; RESP 16; TEMP 36.4; O2SAT 97; O2SAT 99; BMI 31.5
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
[2021-12-08 18:18] LABS: COVID-19 Test Negative (Negative)
[2021-12-08 18:21] LABS: Amphetamine Screen Urine Not Detected (Not Detect); Barbiturates, Urine Not Detected (Not Detect); Benzodiazepines Screen Urine Not Detected (Not Detect); Cannabinoid Screen Urine Not Detected (Not Detect); Cocaine Screen Urine Not Detected (Not Detect); Fentanyl, urine POSITIVE (Not Detect); Opiate Screen Urine Not Detected (Not Detect); Phencyclidine Screen Urine Not Detected (Not Detect)
--- NOTE | 2021-12-08 18:39 | MHC.CARE ---
Per N, they will be sending out a clinician during this shift to see pt.
[2021-12-08 19:38] LABS: MANUAL DIFF FLAG NO
[2021-12-08 19:45] LABS: Basophils Percent Auto 0.4 % (0-2); Eosinophils Absolute Auto 0.1 X10*3/uL (0.0-0.4); Hematocrit 39.6 % (42.0-52.0); Hemoglobin 13.8 g/dl (14.0-18.0); Imm Gran Abs Auto 0.02 X10*3/uL (0.00-0.03); Imm Gran Pct Auto 0.3 % (0.0-0.4); Lymphocytes Percent Auto 15.1 % (20-40); Mean Corpuscular HGB Conc 34.8 g/dl (31.0-36.0); Mean Corpuscular Hemoglobin 32.5 pg (27.0-33.0); Mean Corpuscular Volume 93.4 fL (80.0-98.0); Mean Platelet Volume 9.5 fL (9.4-12.4); Monocytes Absolute Auto 0.6 X10*3/uL (0.1-1.2); Monocytes Percent Auto 9.4 % (2-11); Neutrophils Percent Auto 73.8 % (45-73); Platelet Count 183 X10*3/uL (160-400); Red Blood Count 4.24 X10*6/uL (4.60-5.80); White Blood Count 6.8 X10*3/uL (4.8-10.8)
[2021-12-08 20:10] LABS: Anion Gap 15 (12-20); Aspartate Amino Transferase 26 U/L (5-37); Bilirubin Direct 0.3 mg/dL (0.0-0.5); Bilirubin Total 0.5 mg/dL (0.0-1.0); Calcium 8.9 mg/dL (8.4-10.2); Carbon Dioxide 24 mmol/L (22-29); Chloride 108 mmol/L (96-108); Ethanol < 10 mg/dL; Sodium 143 mmol/L (135-145)
[2021-12-08 20:23] LABS: Alanine Aminotransferase 26 U/L (0-40); Alkaline Phosphatase 68 U/L (39-117); Blood Urea Nitrogen 27 mg/dL (9-16); Creatinine Clr Calc Pharmacy 108.6; Estimated Glomerular Filt Rate > 60; Glucose Random 92 mg/dL (60-115); Total Protein 7.1 g/dL (6.5-8.0)
[2021-12-09] VITALS: BP 124/73; PULSE 58; RESP 16; TEMP 37.1; O2SAT 97
--- NOTE | 2021-12-09 06:17 | PC.NURSE ---
Patient slept through the night, no distress observed/reported, behavior appropriate and non concerning, patient engaged well with [facility] clinician, disposition per [facility] is section 12 inpatient bed search, med rec completed/pending provider's approval, VSS, elimination intact, independent ambulation, VSS, will continue to monitor.
--- NOTE | 2021-12-09 07:12 | PC.NURSE ---
patient appears to remain asleep at preset respirations are even and unlabored patient appears in no distress
--- NOTE | 2021-12-09 12:27 | PHA.MEDREC ---
Pharmacy Consult ? Medication Reconciliation Pharmacy has REVIEWED the medication reconciliation done by Jared.
[2021-12-09 14:58] VITALS: BP 143/79; PULSE 62; O2SAT 97
[2021-12-09] MEDS: Fludrocortisone Acetate 0.1 MG TABLET PO (15:15)
[2021-12-09] MEDS: Omeprazole 20 MG CAPSULE.DR PO (15:16)
[2021-12-09] MEDS: Folic Acid 1 MG TABLET PO (15:16)
[2021-12-09] MEDS: Sertraline HCL 100 MG TABLET PO (15:16)
[2021-12-09] MEDS: Levothyroxine Sodium 88 MCG TABLET PO (15:16)
[2021-12-09] MEDS: Ferrous Sulfate 324 MG TABLET.DR PO (15:16)
[2021-12-09] MEDS: Loratadine 10 MG TABLET PO (15:17)
[2021-12-09] MEDS: Aspirin Enteric Coated 81 MG TABLET.DR PO (15:17)
[2021-12-09] MEDS: Atorvastatin Calcium 40 MG TABLET PO (15:18)
[2021-12-09] MEDS: Docusate Sodium 100 MG CAPSULE PO ×2 (15:18→20:13)
[2021-12-09] MEDS: lisinopriL 5 MG TABLET PO (15:18)
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
[2021-12-09 19:59] VITALS: BP 134/74; PULSE 60; RESP 18; TEMP 36.6; O2SAT 98
[2021-12-09] MEDS: traZODone HCL 100 MG TABLET 200 MG PO (20:13)
[2021-12-09] MEDS: Prazosin HCL 1 MG CAPSULE PO (20:13)
[2021-12-09] MEDS: risperiDONE 1 MG TABLET PO (20:13)
[2021-12-10 04:57] VITALS: BP 107/62; PULSE 70; RESP 16; TEMP 36.1; O2SAT 98
--- NOTE | 2021-12-10 05:52 | PC.NURSE ---
Patient slept through the night, no distress observed/reported, medication compliant, behavior non concerning and appropriate, patient disposition changed, patient is no more inpatient bed search, per care team patient will be discharge to rest home pending psych consult, VSS, ambulation independent, appetite adequate, elimination intact, will continue to monitor.
--- NOTE | 2021-12-10 06:58 | PC.NURSE ---
patient appears to remain asleep ast present respirations are even and unlabored patient appears in no distress
[2021-12-10] MEDS: Atorvastatin Calcium 40 MG TABLET PO (08:37)
[2021-12-10] MEDS: Fludrocortisone Acetate 0.1 MG TABLET PO (08:37)
[2021-12-10] MEDS: Omeprazole 20 MG CAPSULE.DR PO (08:37)
[2021-12-10] MEDS: Folic Acid 1 MG TABLET PO (08:37)
[2021-12-10] MEDS: lisinopriL 5 MG TABLET PO (08:37)
[2021-12-10] MEDS: Levothyroxine Sodium 88 MCG TABLET PO (08:37)
[2021-12-10] MEDS: Prazosin HCL 1 MG CAPSULE PO ×2 (08:38→20:29)
[2021-12-10] MEDS: Sertraline HCL 100 MG TABLET PO (08:38)
[2021-12-10] MEDS: Aspirin Enteric Coated 81 MG TABLET.DR PO (08:38)
[2021-12-10] MEDS: risperiDONE 1 MG TABLET PO ×2 (08:38→20:29)
[2021-12-10] MEDS: Docusate Sodium 100 MG CAPSULE PO ×2 (08:38→20:29)
[2021-12-10] MEDS: Loratadine 10 MG TABLET PO (08:39)
--- NOTE | 2021-12-10 08:58 | MHC.CARE ---
CARE Team spoke with Pee [phone] , from [facility]. He will have to meet with Pt in person to discuss return to rest home. He will try to see Pt today if possible in the ED but cannot guaranteed. He will follow up with the CARE Team this afternoon as he is working on finding coverage to become available to see Pt.
--- NOTE | 2021-12-10 12:34 | MHC.CARE ---
Pee from [facility] will come to interview pt and discuss admission this afternoon.
--- NOTE | 2021-12-10 16:06 | MHC.CARE ---
CARE Team spoke with staff from [facility], Pt can discharged to the rest home in the morning between 10-11am.
[2021-12-10] MEDS: traZODone HCL 100 MG TABLET 200 MG PO (20:29)
[2021-12-10 20:30] VITALS: BP 127/74; PULSE 60; RESP 18; TEMP 36.4; O2SAT 97
--- NOTE | 2021-12-11 06:29 | PC.NURSE ---
Patient slept through the night, no distress observed/reported, medication compliant, VSS, behavior appropriate, disposition d/c to [facility] between 10 am and 11 am, will continue to monitor.
[2021-12-11 06:41] VITALS: BP 126/60; PULSE 55; RESP 16; TEMP 36.4; O2SAT 97
[2021-12-11 08:22] VITALS: BP 118/70; PULSE 74; RESP 16; TEMP 36.8; O2SAT 98
[2021-12-11] MEDS: Prazosin HCL 1 MG CAPSULE PO (08:54)
[2021-12-11] MEDS: Loratadine 10 MG TABLET PO (08:54)
[2021-12-11] MEDS: Omeprazole 20 MG CAPSULE.DR PO (08:54)
[2021-12-11] MEDS: lisinopriL 5 MG TABLET PO (08:54)
[2021-12-11] MEDS: Docusate Sodium 100 MG CAPSULE PO (08:54)
[2021-12-11] MEDS: Sertraline HCL 100 MG TABLET PO (08:54)
[2021-12-11] MEDS: Folic Acid 1 MG TABLET PO (08:55)
[2021-12-11] MEDS: Aspirin Enteric Coated 81 MG TABLET.DR PO (08:55)
[2021-12-11] MEDS: Atorvastatin Calcium 40 MG TABLET PO (08:55)
[2021-12-11] MEDS: risperiDONE 1 MG TABLET PO (08:56)
[2021-12-11] MEDS: Levothyroxine Sodium 88 MCG TABLET PO (08:56)
[2021-12-11] MEDS: Fludrocortisone Acetate 0.1 MG TABLET PO (09:28)
== END 2021-12-11 09:57 | disposition other institution (70) ==
PROVIDERS: Emergency Medicine Emergency Medical Services; Emergency Provider Emergency Medicine Emergency Medical Services
DX: F33.1 Major depressive disorder, recurrent, moderate (principal); R45.851 Suicidal ideations; Z20.822 Contact with and (suspected) exposure to COVID-19; Z79.899 Other long term (current) drug therapy; F17.210 Nicotine dependence, cigarettes, uncomplicated; Z71.6 Tobacco abuse counseling
CPT/HCPCS: 36415; 80048; 80076; 80307; 82077; 85025; 87635; 99284; 99285

== ENCOUNTER 2024-07-25 15:30 | Emergency (ER) | payer MEDICARE, MEDICAID, SELFPAY ==
--- NOTE | 2024-07-25 | ECG_ITS ---
Test Reason : CP Blood Pressure : */* mmHG Vent. Rate : 80 BPM Atrial Rate : 80 BPM P-R Int : 128 ms QRS Dur : 132 ms QT Int : 426 ms P-R-T Axes : 29 100 57 degrees QTcB Int : 491 ms Normal sinus rhythm Right bundle branch block Abnormal ECG When compared with ECG of 01-Dec-2021 21:03, No significant change was found Referred By: Generic ED Physician Electronically Signed By: Rai Muhammad
--- NOTE | ~2024-07-25 | XR_ITS ---
EXAMINATION: XR CHEST CLINICAL INFORMATION: CP COMPARISON: 11/25/2021. TECHNIQUE: AP view of the chest was obtained. FINDINGS: Left-sided dual-lead pacer device in place with leads in the right atrium and right ventricle. Prior median sternotomy. The heart size is normal. Markedly enlarged main pulmonary arteries. This is stable. Normal aortic contour. Normal mediastinal contours. The lungs are clear bilaterally. No pneumothorax or effusion. No focal osseous or soft tissue abnormality. Total reverse left shoulder arthroplasty in place. XR/XR chest 1V IMPRESSION: 1. No active pulmonary disease. 2. Stable markedly enlarged main pulmonary arteries suggesting pulmonary arterial hypertension. 3. Prior sternotomy. 4. Left-sided dual-lead pacer device in place. Electronically signed by: Bobby Strauss MD 07/25/2024 04:03 PM EDT
[2024-07-25 15:50] VITALS: BP 149/79; PULSE 87; O2SAT 96
[2024-07-25 15:52] VITALS: BP 127/68; PULSE 78; RESP 17; TEMP 36.9; O2SAT 97
[2024-07-25 16:11] LABS: MANUAL DIFF FLAG NO
[2024-07-25 16:12] LABS: Basophils Absolute Auto 0.1 X10*3/uL (0.0-0.2); Basophils Percent Auto 0.9 % (0-2); Eosinophils Absolute Auto 0.1 X10*3/uL (0.0-0.4); Eosinophils Percent Auto 0.8 % (0-4); Hematocrit 35.1 % (42.0-52.0); Hemoglobin 11.8 g/dl (14.0-18.0); Imm Gran Abs Auto 0.02 X10*3/uL (0.00-0.03); Imm Gran Pct Auto 0.3 % (0.0-0.4); Lymphocytes Absolute Auto 1.6 X10*3/uL (1.2-4.9); Lymphocytes Percent Auto 24.9 % (20-40); Mean Corpuscular HGB Conc 33.6 g/dl (31.0-36.0); Mean Corpuscular Hemoglobin 31.4 pg (27.0-33.0); Mean Corpuscular Volume 93.4 fL (80.0-98.0); Mean Platelet Volume 9.2 fL (9.4-12.4); Monocytes Absolute Auto 0.8 X10*3/uL (0.1-1.2); Monocytes Percent Auto 12.3 % (2-11); Neutrophils Absolute Auto 3.9 x10*3/uL (2.0-8.3); Neutrophils Percent Auto 60.8 % (45-73); Platelet Count 232 X10*3/uL (160-400); Red Blood Count 3.76 X10*6/uL (4.60-5.80); Red Cell Distribution Width 13.5 % (11.0-16.0); White Blood Count 6.4 X10*3/uL (4.8-10.8)
[2024-07-25 16:13] VITALS: BP 115/58; PULSE 75; RESP 16; TEMP 36.7; O2SAT 94; BMI 39.8
[2024-07-25 16:20] LABS: Prothrombin Time 11.8 SEC (10.9-12.4)
[2024-07-25 16:27] LABS: Alanine Aminotransferase 39 U/L (0-40); Albumin Level 3.7 g/dL (3.5-5.0); Alkaline Phosphatase 61 U/L (39-117); Anion Gap 12 (12-20); Aspartate Amino Transferase 59 U/L (5-37); Bilirubin Total 0.7 mg/dL (0.0-1.0); Blood Urea Nitrogen 14 mg/dL (9-16); Calcium 8.7 mg/dL (8.4-10.2); Carbon Dioxide 26 mmol/L (22-29); Chloride 105 mmol/L (96-108); Creatinine Clr Calc Pharmacy 114.2; Estimated Glomerular Filt Rate > 60; Glucose Random 107 mg/dL (60-115); Potassium 4.2 mmol/L (3.3-5.1); Sodium 139 mmol/L (135-145); Total Protein 7.3 g/dL (6.5-8.0)
[2024-07-25 16:32] LABS: B Type Natriuretic Peptide 63 pg/mL (<100)
[2024-07-25 16:34] LABS: Troponin-I High Sensitivity 5.1 ng/L (<3.5-35.0)
[2024-07-25 16:48] LABS: Influenza A PCR NEGATIVE (Negative); Influenza B PCR NEGATIVE (Negative); Resp Syncy Virus RNA Qual PCR NEGATIVE (Negative); SARS COV2 PCR INHOUSE NEGATIVE (Negative)
--- NOTE | 2024-07-25 16:52 | ED_ITS ---
HPI - General Adult General Chief complaint: General Medical Stated complaint: CP AND DIARRHEA PER EMS Time Seen by Provider: 07/25/24 16:09 History of Present Illness ED Provider: Matthew Mcdaniel MD HPI narrative: 58-year-old male with history of congenital heart disease status post operation at 4 years old, valve repair in 2012. Reports to me that he is currently without a home since Monday. He is unclear as to exactly what this happened there where he was before this. Last night he was in the [facility] ED was not admitted he was released this morning. He tells me that he had the same symptoms including mild lightheadedness and chest pain which is rather chronic. Related Data Home Medications ?Medication ?Instructions ?Recorded ?Confirmed atorvastatin 40 mg tablet 1 tab PO DAILY 11/26/21 12/08/21 cetirizine 10 mg tablet 1 tab PO DAILY 11/26/21 12/08/21 ferrous sulfate 325 mg (65 mg 1 tab PO Q OTHER DAY 11/26/21 12/08/21 iron) tablet (FeroSul) fludrocortisone 0.1 mg tablet 1 tab PO DAILY 11/26/21 12/08/21 levothyroxine 88 mcg tablet 1 tab PO DAILY 11/26/21 12/08/21 lisinopril 5 mg tablet 1 tab PO DAILY 11/26/21 12/08/21 omeprazole 20 mg capsule,delayed 1 cap PO DAILY 11/26/21 12/08/21 release prazosin 1 mg capsule 1 cap PO BID 11/26/21 12/08/21 risperidone 1 mg tablet 1 tab PO BID 11/26/21 12/08/21 sertraline 100 mg tablet 1 tab PO DAILY 11/26/21 12/08/21 Previous Rx's ?Medication ?Instructions ?Recorded aspirin 81 mg tablet,delayed 81 mg PO DAILY #30 tabs 01/13/21 release docusate sodium 100 mg capsule 100 mg PO BID #60 caps 01/13/21 folic acid 1 mg tablet 1 mg PO DAILY #30 tabs 01/13/21 trazodone 100 mg tablet 200 mg (2 x 100 mg) PO BEDTIME 30 12/02/21 days #60 tabs Allergies Allergy/AdvReac Type Severity Reaction Status Date / Time bee pollen [bee stings] Allergy Intermediate Rash Verified 07/25/24 16:16 gluten AdvReac Intermediate Diarrhea Verified 07/25/24 16:16 [facility] Past Medical History Medical History AMI (acute myocardial infarction) Diabetes mellitus Hypertension Hypothyroidism Surgical History History of open heart surgery Pulmonary valve replaced Social History Social History Household Members: None Household Members Other:: Pt states he is homeless. Housing: Homeless Do you presently have visiting nurse or other home services: No Patient Tobacco Use Status: Current everyday Tobacco user Tobacco use type: Cigarette and Cigar Cigarette Packs Per Day: 1 Cigarettes Per Day: 20.0 Second Hand Smoke Exposure: No Substance Use Type: Marijuana Advance Directives: No Advance Directives Information Provided: No Do you have a plan to hurt others: No Plan service: No Sexual orientation: Straight/Heterosexual Physical Exam ED Vital Signs: Vital Signs - 24 hr 07/25/24 15:52 07/25/24 16:13 07/25/24 18:21 Temperature 98.5 F 98.0 F 98.2 F Pulse Rate 78 75 69 Respiratory Rate 17 16 15 Blood Pressure 127/68 115/58 L 136/68 Pulse Oximetry 97 94 96 Oxygen Delivery Method Room Air Room Air Room Air 07/25/24 19:42 Temperature 98.1 F Pulse Rate 77 Respiratory Rate 16 Blood Pressure 133/76 Pulse Oximetry 99 Oxygen Delivery Method Room Air BMI result Body Mass Index 39.8 Const Other: EXAM: Gen: Alert, awake, well appearing, well hydrated. Head: Atraumatic Eyes: Anicteric, Normal conjunctiva. ENT: Moist mucosa, no pallor. ?Poor dentition Neck: Supple. Respiratory: Breathing comfortably, No distress.Clear to auscultation bilaterally, symmetric chest expansion, No wheeze, rales, ronchi. Cardiovascular: Regular rate and rhythm. No murmurs or rub. Well perfused periphery, warm extremities. No edema. ?Sternotomy scar. Pacer defibrillator Abdominal: Soft, no objective distension. No palpable masses or obvious organomegaly. No focal tenderness, no guarding, no rebound tenderness or other peritoneal findings. : No flank tenderness. Neuro: Alert. Gross movement of all extremities intact. ?No motor deficits face symmetric no ataxia Vital signs: See flowsheet Medical Decision Making Medical Decision Making [facility] Narrative: [age] male with congenital heart disease pacer diabetes nonspecified psych disorder recent overnight ED stay at the [facility]. Recent ox. Not interested in this at this time. On domicile old for about 4 days. Awake alert nontoxic looking no respiratory distress no active chest pain when I evaluate him although later he complained of some mild chest discomfort. Troponin x2 negative. ECG without acute ischemic changes. He reported feeling lightheaded but is not orthostatic clinically or dry appearing he looks euvolemic and has reassuring lab work __ No acute medical emergency identified. T I did consult child support case officer/social work due to patient currently being on domicile with multiple comorbid medical conditions. He is not psychotic and meets no other indication for acute admission. manager intensive care evaluated the patient provided housing resources. Patient states that he would like to leave he is expecting his SSI check tomorrow and wants to get a hotel after this. Provided a comfortable place to rest as a discharge status overnight in the waiting room Lab Data [facility] Lab Attestation statement: I reviewed the patient's lab results. 07/25/24 16:04 07/25/24 16:04 Labs: Lab Results 07/25/24 07/25/24 Range/Units 16:04 18:24 WBC 6.4 (4.8-10.8) X10*3/uL RBC 3.76 L (4.60-5.80) X10*6/uL Hgb 11.8 L (14.0-18.0) g/dl Hct 35.1 L (42.0-52.0) % MCV 93.4 (80.0-98.0) fL MCH 31.4 (27.0-33.0) pg MCHC 33.6 (31.0-36.0) g/dl RDW 13.5 (11.0-16.0) % Plt Count 232 D (160-400) X10*3/uL MPV 9.2 L (9.4-12.4) fL Immature Gran % (Auto) 0.3 (0.0-0.4) % Neut % (Auto) 60.8 (45-73) % Lymph % (Auto) 24.9 (20-40) % Shelby % (Auto) 12.3 H (2-11) % Eos % (Auto) 0.8 (0-4) % Baso % (Auto) 0.9 (0-2) % Lymph # (Auto) 1.6 (1.2-4.9) X10*3/uL Shelby # (Auto) 0.8 (0.1-1.2) X10*3/uL Eos # (Auto) 0.1 (0.0-0.4) X10*3/uL Baso # (Auto) 0.1 (0.0-0.2) X10*3/uL Abs Immat Gran (auto) 0.02 (0.00-0.03) X10*3/uL Absolute Neuts (auto) 3.9 (2.0-8.3) x10*3/uL Absolute Nucleated RBC 0.000 (0.0-0.012) X10*3/uL Nucleated RBC % (auto) 0.0 (0.0-0.2) /100WBC PT 11.8 (10.9-12.4) SEC INR 1.0 (0.9-1.1) Sodium 139 (135-145) mmol/L Potassium 4.2 (3.3-5.1) mmol/L Chloride 105 (96-108) mmol/L Carbon Dioxide 26 (22-29) mmol/L Anion Gap 12 (12-20) BUN 14 (9-16) mg/dL Creatinine 0.81 (0.5-1.4) mg/dL Estim Creat Clear Calc 114.2 Estimated GFR > 60 Random Glucose 107 (60-115) mg/dL Calcium 8.7 (8.4-10.2) mg/dL Magnesium 2.0 (1.6-2.6) mg/dL Total Bilirubin 0.7 (0.0-1.0) mg/dL AST 59 H (5-37) U/L ALT 39 (0-40) U/L Alkaline Phosphatase 61 (39-117) U/L Troponin I High Sens 5.1 5.3 (<3.5-35.0) ng/L B-Natriuretic Peptide 63 (<100) pg/mL Total Protein 7.3 (6.5-8.0) g/dL Albumin 3.7 (3.5-5.0) g/dL Influenza Type A (PCR) NEGATIVE (Negative) Influenza Type B (PCR) NEGATIVE (Negative) RSV RNA Qual (PCR) NEGATIVE (Negative) SARS-CoV-2 RNA (RT-PCR) NEGATIVE (Negative) Independent Interpretation I performed an independent interpretation of an: EKG Interpretation: Sinus rhythm rate 69 QTC 495 right bundle branch block. Appropriate discordance in the precordium. Inferior leads subtle STD elevation isolated to lead 3 however this appears consistent with previous including December 01. No dynamic changes today on repeat ECG Discharge Plan Discharge Clinical Impression: Chest pain Patient Disposition: Home, Self-Care Instructions: Chest Pain (DC) Additional Instructions: _ DISCHARGE DIAGNOSES: Chest pain, chronic without signs of acute significant cardiac or pulmonary or other serious cause HISTORY OF PRESENTATION: ?Chest pain slight lightheadedness and diarrhea. In the setting of alcohol use disorder and recent homelessness EMERGENCY DEPARTMENT COURSE,TESTS, TREATMENTS: While in the ED today we had you evaluated by our protective services social worker we checked for heart attack and other severe complications with EKG blood work. We did not find any severe or significant findings DISCHARGE MEDICATIONS: ?[We have made no changes to your regular medication regimen] FOLLOW-UP: ?Call your primary or general physician soon as possible to discuss your symptoms, your ED visit and to discuss follow up plans Call your primary doctor INSTRUCTIONS ?& RETURN PRECAUTIONS: If any symptoms change first call your primary physician, if it is after-hours your primary doctors office should have a provider donation worker you can speak with. If the symptoms are severe or very concerning to you then call 911 or return to the ED. Follow up with the advice given by our protective services social worker/child support case officer who discussed options for you Matthew Mcdaniel MD Emergency Physician [facility] Prescriptions: No Action aspirin 81 mg Tablet,Delayed Release (Dr/Ec) 81 mg PO DAILY Qty: 30 0RF docusate sodium 100 mg Capsule 100 mg PO BID Qty: 60 0RF folic acid 1 mg Tablet 1 mg PO DAILY Qty: 30 0RF atorvastatin 40 mg tablet 1 tab PO DAILY cetirizine 10 mg tablet 1 tab PO DAILY sertraline 100 mg tablet 1 tab PO DAILY levothyroxine 88 mcg tablet 1 tab PO DAILY ferrous sulfate [FeroSul] 325 mg (65 mg iron) tablet 1 tab PO Q OTHER DAY omeprazole 20 mg capsule,delayed release(DR/EC) 1 cap PO DAILY fludrocortisone 0.1 mg tablet 1 tab PO DAILY risperidone 1 mg tablet 1 tab PO BID prazosin 1 mg capsule 1 cap PO BID lisinopril 5 mg tablet 1 tab PO DAILY trazodone 100 mg Tablet 200 mg PO BEDTIME 30 Days Qty: 60 0RF Interventions: ED Discharge Assessment Last Done: 07/25/24 19:42 Discharge Date/Time: 07/25/24 19:42 Print Language: Yi
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
[2024-07-25 18:21] VITALS: BP 136/68; PULSE 69; RESP 15; TEMP 36.8; O2SAT 96
[2024-07-25 18:56] LABS: Troponin-I High Sensitivity 5.3 ng/L (<3.5-35.0)
--- NOTE | 2024-07-25 18:58 | ECG_ITS ---
Test Reason : RYTHMN CHANGE Blood Pressure : */* mmHG Vent. Rate : 69 BPM Atrial Rate : 69 BPM P-R Int : 152 ms QRS Dur : 136 ms QT Int : 462 ms P-R-T Axes : 46 93 64 degrees QTcB Int : 495 ms Normal sinus rhythm Right bundle branch block Abnormal ECG When compared with ECG of 25-Jul-2024 15:40, No significant change was found Referred By: Matthew Mcdaniel Electronically Signed By: Rai Muhammad
[2024-07-25 19:42] VITALS: BP 133/76; PULSE 77; RESP 16; TEMP 36.7; O2SAT 99
== END 2024-07-25 19:42 | disposition home or self-care (01) ==
PROVIDERS: Emergency Provider Emergency Medicine; PCP Internal Medicine
DX: R07.89 Other chest pain (principal); R42 Dizziness and giddiness; R06.02 Shortness of breath; I45.10 Unspecified right bundle-branch block; F17.210 Nicotine dependence, cigarettes, uncomplicated; Z03.818 Encounter for observation for suspected exposure to other biological agents ruled out; Z79.899 Other long term (current) drug therapy
CPT/HCPCS: 0241U; 36415; 71045; 80053; 83735; 83880; 84484; 85025; 85610; 93005; 99283; 99284

== ENCOUNTER → 2024-07-25 15:40 | Outpatient (BNV) | payer MEDICARE, MEDICAID, SELFPAY | PROVIDERS: Emergency Provider Emergency Medicine; PCP Internal Medicine; Visit Provider Internal Medicine Cardiovascular Disease | DX: I45.10 Unspecified right bundle-branch block (principal) | CPT/HCPCS: 93010 ==

== ENCOUNTER → 2024-07-25 15:54 | Outpatient (BNV) | payer MEDICARE, MEDICAID, SELFPAY | PROVIDERS: Emergency Provider Emergency Medicine; PCP Internal Medicine; Visit Provider Radiology Diagnostic Radiology | DX: I27.21 Secondary pulmonary arterial hypertension (principal) | CPT/HCPCS: 71045 ==